=== PATIENT | female | born 1950 | race Caucasian/White ===

== ENCOUNTER → 2017-11-30 | Outpatient (REF) | payer BC ==
[2017-11-30 17:30] LABS: APPEARANCE, URINE HAZY (CLEAR); BACTERIA, URINE AUTO 3+ (NEGATIVE); BILIRUBIN, URINE AUTO NEGATIVE (NEGATIVE); BLOOD, URINE BLOOD NEGATIVE (NEGATIVE); COLOR, URINE YELLOW (YELLOW); GLUCOSE, URINE (UA) AUTO NEGATIVE (NEGATIVE); KETONE, URINE AUTO TRACE mg/dL (NEGATIVE); LEUKOCYTE ESTERASE, URINE AUTO 3+ (NEGATIVE); MUCUS, URINE SMALL (NEGATIVE); NITRITE, URINE AUTO POSITIVE (NEGATIVE); PROTEIN, URINE AUTO NEGATIVE (NEGATIVE); RBC, URINE AUTO 3 /HPF (0-3); SPECIFIC GRAVITY URINE AUTO 1.024 (1.002-1.035); SQUAMOUS EPITHELIAL CELL UR AU 3 /HPF (0-6); UROBILINOGEN, URINE AUTO 0.2 mg/dL (0.0-2.0); WBC, URINE AUTO 21 /HPF (0-3)
== END ==
LOC: M LAB REF 16:29
DX: N39.0 Urinary tract infection, site not specified (principal)
CPT/HCPCS: 81001

== ENCOUNTER → 2017-12-11 | Outpatient (REF) | payer BC ==
[2017-12-11 20:13] LABS: APPEARANCE, URINE HAZY (CLEAR); BACTERIA, URINE AUTO NEGATIVE (NEGATIVE); BILIRUBIN, URINE AUTO NEGATIVE (NEGATIVE); BLOOD, URINE BLOOD NEGATIVE (NEGATIVE); COLOR, URINE YELLOW (YELLOW); GLUCOSE, URINE (UA) AUTO NEGATIVE (NEGATIVE); KETONE, URINE AUTO TRACE mg/dL (NEGATIVE); LEUKOCYTE ESTERASE, URINE AUTO TRACE (NEGATIVE); MUCUS, URINE SMALL (NEGATIVE); NITRITE, URINE AUTO NEGATIVE (NEGATIVE); PROTEIN, URINE AUTO NEGATIVE (NEGATIVE); RBC, URINE AUTO 3 /HPF (0-3); SPECIFIC GRAVITY URINE AUTO 1.028 (1.002-1.035); SQUAMOUS EPITHELIAL CELL UR AU 3 /HPF (0-6); WBC, URINE AUTO 2 /HPF (0-3)
== END ==
LOC: M LAB REF 17:11
DX: J20.9 Acute bronchitis, unspecified (principal)
CPT/HCPCS: 81001

== ENCOUNTER → 2017-12-11 | Outpatient (CLI) | payer BC | LOC: M WUC 12:32 | DX: J20.9 Acute bronchitis, unspecified (principal) ==

== ENCOUNTER → 2018-02-11 | Outpatient (CLI) | payer BC ==
[2018-02-11 17:08] LABS: ALBUMIN 3.8 GM/DL (3.2-5.2); ALBUMIN/GLOBULIN RATIO 1.19 (1.00-1.93); ALKALINE PHOSPHATASE 78 U/L (45-117); ALT/SGPT 20 U/L (12-78); ANION GAP 9 MEQ/L (8-16); AST/SGOT 19 U/L (7-37); BILIRUBIN,TOTAL 0.5 MG/DL (0.2-1.0); BLOOD UREA NITROGEN 17 MG/DL (7-18); CALCIUM LEVEL 8.9 MG/DL (8.8-10.2); CARBON DIOXIDE LEVEL 29 MEQ/L (21-32); CHLORIDE LEVEL 103 MEQ/L (98-107); CREATININE FOR GFR 0.73 MG/DL (0.55-1.30); GLOMERULAR FILTRATION RATE > 60.0 (>45); GLUCOSE, FASTING 84 MG/DL (70-100); POTASSIUM SERUM 4.2 MEQ/L (3.5-5.1); SODIUM LEVEL 141 MEQ/L (136-145)
== END ==
LOC: M WUC 12:16
DX: Q44.6 Cystic disease of liver (principal)
CPT/HCPCS: 80053

== ENCOUNTER → 2018-02-17 | Outpatient (CLI) | payer BC ==
[~2018-02-17] MED LIST: PROHANCE 279.3MG/ML 15ML VIAL (A9576) As Ordered; PROHANCE 279.3MG/ML 5ML VIAL (A9576) As Ordered
== END ==
LOC: M RAD 11:15
DX: K76.9 Liver disease, unspecified (principal)

== ENCOUNTER → 2018-04-13 | Outpatient (CLI) | payer BC ==
[2018-04-13 13:04] LABS: BASO % 0.3 % (0.0-1.0); EOS # 0.1 10^3/uL (0.0-0.50); EOS % 1.4 % (0.0-3.0); HEMATOCRIT 41.2 % (36.0-47.0); HEMOGLOBIN 13.8 g/dl (12.0-15.5); IMMATURE GRANULOCYTE % 0.3 % (0-3.0); LYMPH # 1.9 10^3/uL (1.5-4.5); LYMPH % 23.9 % (24.0-44.0); MEAN CORPUSCULAR HEMOGLOBIN 29.8 pg (27.0-33.0); MEAN CORPUSCULAR HGB CONC 33.5 g/dl (32.0-36.5); MONO # 0.8 10^3/uL (0.0-0.8); MONO % 9.8 % (0.0-5.0); NEUTROPHILS % 64.3 % (36.0-66.0); PLATELET COUNT, AUTOMATED 215 10^3/uL (150-450); RED BLOOD COUNT 4.63 10^6/uL (4.00-5.40); RED CELL DISTRIBUTION WIDTH 13.1 % (11.5-14.5); WHITE BLOOD COUNT 7.8 10^3/uL (4.0-10.0)
[2018-04-13 13:08] LABS: APPEARANCE, URINE HAZY (CLEAR); BACTERIA, URINE AUTO 1+ (NEGATIVE); BILIRUBIN, URINE AUTO NEGATIVE (NEGATIVE); BLOOD, URINE BLOOD NEGATIVE (NEGATIVE); COLOR, URINE YELLOW (YELLOW); GLUCOSE, URINE (UA) AUTO NEGATIVE (NEGATIVE); KETONE, URINE AUTO NEGATIVE (NEGATIVE); LEUKOCYTE ESTERASE, URINE AUTO 1+ (NEGATIVE); MUCUS, URINE SMALL (NEGATIVE); NITRITE, URINE AUTO POSITIVE (NEGATIVE); PROTEIN, URINE AUTO NEGATIVE (NEGATIVE); RBC, URINE AUTO 3 /HPF (0-3); SPECIFIC GRAVITY URINE AUTO 1.011 (1.002-1.035); SQUAMOUS EPITHELIAL CELL UR AU 2 /HPF (0-6); UROBILINOGEN, URINE AUTO 0.2 mg/dL (0.0-2.0); WBC, URINE AUTO 29 /HPF (0-3)
[2018-04-13 13:20] LABS: TOTAL 25(OH) VITAMIN D 30.2 NG/ML (30.0-100.0)
[2018-04-13 13:27] LABS: ALBUMIN 3.8 GM/DL (3.2-5.2); ALBUMIN/GLOBULIN RATIO 1.15 (1.00-1.93); ALKALINE PHOSPHATASE 78 U/L (45-117); ALT/SGPT 32 U/L (12-78); ANION GAP 7 MEQ/L (8-16); AST/SGOT 21 U/L (7-37); BILIRUBIN,TOTAL 0.5 MG/DL (0.2-1.0); BLOOD UREA NITROGEN 16 MG/DL (7-18); CALCIUM LEVEL 8.9 MG/DL (8.8-10.2); CARBON DIOXIDE LEVEL 31 MEQ/L (21-32); CHLORIDE LEVEL 104 MEQ/L (98-107); CHOLESTEROL LEVEL 190 MG/DL (<200); CHOLESTEROL RISK RATIO 2.533 (<5); CREATININE FOR GFR 0.73 MG/DL (0.55-1.30); FREE T4 1.23 NG/DL (0.76-1.46); GLOMERULAR FILTRATION RATE > 60.0 (>45); GLUCOSE, FASTING 101 MG/DL (70-100); HDL CHOLESTEROL 75 MG/DL (>40); LDL CHOLESTEROL 100.8 MG/DL (<100); NON-HDL-C 115 MG/DL; POTASSIUM SERUM 3.8 MEQ/L (3.5-5.1); SODIUM LEVEL 142 MEQ/L (136-145); TOTAL PROTEIN 7.1 GM/DL (6.4-8.2); TRIGLYCERIDES LEVEL 71 MG/DL (<150)
== END ==
LOC: M SMT 08:12
DX: I10 Essential (primary) hypertension (principal); E55.9 Vitamin D deficiency, unspecified; E78.5 Hyperlipidemia, unspecified; J30.9 Allergic rhinitis, unspecified

== ENCOUNTER → 2018-06-16 | Outpatient (REF) | payer BC ==
[2018-06-16 20:38] LABS: APPEARANCE, URINE CLOUDY (CLEAR); BACTERIA, URINE AUTO 2+ (NEGATIVE); BILIRUBIN, URINE AUTO NEGATIVE (NEGATIVE); BLOOD, URINE BLOOD 1+ (NEGATIVE); COLOR, URINE YELLOW (YELLOW); GLUCOSE, URINE (UA) AUTO NEGATIVE (NEGATIVE); KETONE, URINE AUTO TRACE mg/dL (NEGATIVE); LEUKOCYTE ESTERASE, URINE AUTO 3+ (NEGATIVE); MUCUS, URINE SMALL (NEGATIVE); NITRITE, URINE AUTO POSITIVE (NEGATIVE); PROTEIN, URINE AUTO NEGATIVE (NEGATIVE); RBC, URINE AUTO 8 /HPF (0-3); SPECIFIC GRAVITY URINE AUTO 1.016 (1.002-1.035); SQUAMOUS EPITHELIAL CELL UR AU 1 /HPF (0-6); UROBILINOGEN, URINE AUTO 0.2 mg/dL (0.0-2.0); WBC, URINE AUTO 132 /HPF (0-3)
== END ==
LOC: M LAB REF 09:16
DX: R30.0 Dysuria (principal)
CPT/HCPCS: 81001

== ENCOUNTER → 2018-06-30 | Outpatient (CLI) | payer BC | LOC: M RAD 08:26 | DX: R91.8 Other nonspecific abnormal finding of lung field (principal) | CPT/HCPCS: 71250 ==

== ENCOUNTER → 2019-04-07 | Outpatient (CLI) | payer BC ==
--- NOTE | 2019-04-07 11:51 | REP ---
LEFT KNEE, FIVE VIEWS: HISTORY: Knee pain. There is no acute fracture or dislocation. There is moderate narrowing of the knee joint spaces. Osteophytes are present in the femur and tibia. Chondrocalcinosis is present. IMPRESSION: Degenerative change as described above. Electronically Signed by Kristian Martin MD 04/07/2019 12:04 P
== END ==
LOC: M WUC 10:40
PROVIDERS: ATTEND Physician Assistant
DX: M17.12 Unilateral primary osteoarthritis, left knee (principal); M25.762 Osteophyte, left knee; M25.562 Pain in left knee

== ENCOUNTER → 2019-10-18 | Outpatient (CLI) | payer BC ==
--- NOTE | 2019-10-18 12:20 | REP ---
Clinical: Lower back pain. Technique: AP, lateral, bilateral oblique and coned-down views of the lumbosacral spine. Comparison: MRI dated 09/28/2015 Findings: Age related osteopenia and degenerative changes include endplate sclerosis, disc space narrowing, and hypertrophic facet changes primarily involving L4-5 and L5-S1. There is chronic grade 1 anterolisthesis at the L4-5 level of approximately 7 mm and chronic grade 1 anterolisthesis at the L5-S1 level of approximately 5 mm. There is no evidence for acute fracture / compression injury. Impression: Osteopenia and multilevel degenerative spondylosis including chronic grade 1 anterolisthesis at L4-5 and L5-S1. Electronically Signed by Mark Ross MD 10/18/2019 12:11 P
== END ==
LOC: M WUC 11:42
PROVIDERS: ATTEND Physician Assistant
DX: S39.012A Strain of muscle, fascia and tendon of lower back, initial encounter (principal); X58.XXXA Exposure to other specified factors, initial encounter; Y92.89 Other specified places as the place of occurrence of the external cause; M47.896 Other spondylosis, lumbar region; M47.897 Other spondylosis, lumbosacral region; M85.88 Other specified disorders of bone density and structure, other site

== ENCOUNTER → 2019-12-05 | Outpatient (CLI) | payer BC ==
--- NOTE | 2019-12-06 01:44 | REP ---
Clinical: Cough . Comparison: 12/11/2017. Technique: PA and lateral. Findings: The mediastinum and cardiac silhouette are normal. The lung goetz are clear and without acute consolidation, effusion, or pneumothorax. Lateral view demonstrates chronic blunting to the right posterior costophrenic angle. The skeletal structures are intact and normal. Impression: 1. No acute cardiopulmonary process. Electronically Signed by Makr Ross MD 12/06/2019 01:35 A
== END ==
LOC: M WUC 12:48
PROVIDERS: ATTEND Physician Assistant
DX: R06.02 Shortness of breath (principal)

== ENCOUNTER → 2020-02-07 | Outpatient (CLI) | payer BC ==
[2020-02-07 09:26] LABS: BASO % 0.3 % (0.0-1.0); EOS # 0.1 10^3/uL (0.0-0.5); EOS % 1.6 % (0.0-3.0); HEMATOCRIT 43.2 % (36.0-47.0); HEMOGLOBIN 14.2 g/dl (12.0-15.5); LYMPH # 2.1 10^3/uL (1.5-5.0); LYMPH % 28.7 % (24.0-44.0); MEAN CORPUSCULAR HEMOGLOBIN 28.9 pg (27.0-33.0); MEAN CORPUSCULAR HGB CONC 32.9 g/dl (32.0-36.5); MEAN CORPUSCULAR VOLUME 87.8 fl (80.0-96.0); MONO # 0.7 10^3/uL (0.0-0.8); MONO % 9.1 % (0.0-5.0); NEUTROPHILS # 4.4 10^3/uL (1.5-8.5); NEUTROPHILS % 59.9 % (36.0-66.0); PLATELET COUNT, AUTOMATED 211 10^3/uL (150-450); RED BLOOD COUNT 4.92 10^6/uL (4.00-5.40); WHITE BLOOD COUNT 7.3 10^3/uL (4.0-10.0)
[2020-02-07 09:50] LABS: APPEARANCE, URINE CLEAR (CLEAR); BACTERIA, URINE AUTO 3+ (NEGATIVE); BILIRUBIN, URINE AUTO NEGATIVE (NEGATIVE); BLOOD, URINE BLOOD NEGATIVE (NEGATIVE); COLOR, URINE YELLOW (YELLOW); GLUCOSE, URINE (UA) AUTO NEGATIVE (NEGATIVE); KETONE, URINE AUTO NEGATIVE (NEGATIVE); LEUKOCYTE ESTERASE, URINE AUTO NEGATIVE (NEGATIVE); NITRITE, URINE AUTO NEGATIVE (NEGATIVE); PROTEIN, URINE AUTO NEGATIVE (NEGATIVE); RBC, URINE AUTO 3 /HPF (0-3); SPECIFIC GRAVITY URINE AUTO 1.009 (1.002-1.035); SQUAMOUS EPITHELIAL CELL UR AU 1 /HPF (0-6); UROBILINOGEN, URINE AUTO 0.2 mg/dL (0.0-2.0); WBC, URINE AUTO 3 /HPF (0-3)
[2020-02-07 10:05] LABS: ALBUMIN 3.6 GM/DL (3.2-5.2); ALT/SGPT 19 U/L (12-78); BILIRUBIN,TOTAL 0.4 MG/DL (0.2-1.0); BLOOD UREA NITROGEN 20 MG/DL (7-18); CALCIUM LEVEL 9.1 MG/DL (8.8-10.2); CARBON DIOXIDE LEVEL 32 MEQ/L (21-32); CHLORIDE LEVEL 103 MEQ/L (98-107); CHOLESTEROL LEVEL 245 MG/DL (<200); CHOLESTEROL RISK RATIO 3.402 (<5); CREATININE FOR GFR 0.69 MG/DL (0.55-1.30); FREE T4 1.27 NG/DL (0.76-1.46); GLOMERULAR FILTRATION RATE > 60.0 (>45); GLUCOSE, FASTING 104 MG/DL (70-100); HDL CHOLESTEROL 72 MG/DL (>40); LDL CHOLESTEROL 153 MG/DL (<100); NON-HDL-C 173 MG/DL; POTASSIUM SERUM 3.4 MEQ/L (3.5-5.1); SODIUM LEVEL 141 MEQ/L (136-145); TOTAL PROTEIN 6.8 GM/DL (6.4-8.2); TRIGLYCERIDES LEVEL 100 MG/DL (<150)
== END ==
LOC: M WUC 08:20
PROVIDERS: ATTEND Family Medicine
DX: Z00.01 Encounter for general adult medical examination with abnormal findings (principal); I10 Essential (primary) hypertension

== ENCOUNTER → 2020-02-16 | Outpatient (CLI) | payer BC | LOC: M WUC 15:14 | PROVIDERS: ATTEND Internal Medicine Cardiovascular Disease | DX: R06.02 Shortness of breath (principal) ==

== ENCOUNTER → 2020-06-06 | Outpatient (CLI) | payer BC ==
[~2020-06-06] MED LIST changes: +ACET-897 PO; +ADV250INH INH; +ALLE180T33 PO; +AMLO1TAB24 PO; +ATOR1TAB19 PO; +CEFD300CAP PO; +CHLO25TA PO; +IBUP200C25 PO; +KEFL500C17 PO; +MAGN400C2 PO; +MAGN400T2 PO; +OMEP1CAP73 PO; +POTA10TA16 PO; +PROAAER10 INH; -PROHANCE 279.3MG/ML 15ML VIAL (A9576) As Ordered; -PROHANCE 279.3MG/ML 5ML VIAL (A9576) As Ordered; +VITA50005 PO; +XARE10TA PO; +XARE20TA PO
== END ==
LOC: M LABSMTC 10:17
PROVIDERS: ATTEND Anesthesiology
DX: Z01.818 Encounter for other preprocedural examination (principal); Z11.59 Encounter for screening for other viral diseases; Z20.828 Contact with and (suspected) exposure to other viral communicable diseases
CPT/HCPCS: C9803; U0003

== ENCOUNTER 2020-06-11 11:52 | Day surgery (SDC) | payer BC ==
[~2020-06-11] VITALS: Ht 162.6 cm; Wt 75.7 kg
[~2020-06-11 11:52] MED LIST changes: -ACET-897 PO; -AMLO1TAB24 PO; -CEFD300CAP PO; -IBUP200C25 PO; -KEFL500C17 PO; +LIDOCAINE 2% 100MG/5ML SDV (FOR ANES.) As Ordered ONE; +LIDOCAINE 2% INJ 100 MG/5 ML SYRINGE As Ordered ONE; -MAGN400C2 PO; -MAGN400T2 PO; -XARE10TA PO; -XARE20TA PO; +propofoL 200 MG/20 ML VIAL As Ordered ONE
[2020-06-11] MEDS ORDERED: IBUP200C25 PO (12:14)
[2020-06-11] MEDS ORDERED: ACET-897 PO (12:14)
--- NOTE | 2020-06-11 12:39 | ROOR ---
Patient Name: Irais Hunt Procedure Date: 06/11/2020 12:27 PM Date of : 1950 Age: 70 Room: [facility] Gender: Female Note Status: Finalized Procedure: Upper GI endoscopy Indications: Epigastric abdominal pain Providers: David MENDEZ MD Referring MD: SHRADDHA GANDHI MD Requesting Provider: Medicines: Monitored Anesthesia Care Complications: No immediate complications. Procedure: Pre-Anesthesia Assessment: - The heart rate, respiratory rate, oxygen saturations, blood pressure, adequacy of pulmonary ventilation, and response to care were monitored throughout the procedure. The Endoscope was introduced through the mouth, and advanced to the second part of duodenum. Findings: The examined esophagus was normal. Very small (insignificant) Hiatal Hernia. The entire examined stomach was normal. The examined duodenum was normal. Impression: - Normal esophagus. - Normal stomach with a very small hiatal hernia. - Normal examined duodenum. - No specimens collected. Recommendation: - Follow an antireflux regimen. - Observe patient's clinical course. - Continue present medications. David Mendez MD David MENDEZ MD 06/11/2020 12:39:07 PM Electronically signed by David MENDEZ MD Number of Addenda: 0 Note Initiated On: 06/11/2020 12:27 PM Estimated Blood Loss: Estimated blood loss: none.
--- NOTE | 2020-06-11 12:57 | ROOR ---
Patient Name: Irais Hunt Procedure Date: 06/11/2020 12:28 PM Date of : 1950 Age: 70 Room: [facility] Gender: Female Note Status: Finalized Procedure: Colonoscopy Indications: Colon cancer screening in patient at increased risk: Colorectal cancer in father Providers: David MENDEZ MD Referring MD: SHRADDHA GANDHI MD Requesting Provider: Medicines: Monitored Anesthesia Care Complications: No immediate complications. Procedure: Pre-Anesthesia Assessment: - The heart rate, respiratory rate, oxygen saturations, blood pressure, adequacy of pulmonary ventilation, and response to care were monitored throughout the procedure. The Colonoscope was introduced through the anus and advanced to the terminal ileum, with identification of the appendiceal orifice and IC valve. The colonoscopy was performed without difficulty. The patient tolerated the procedure well. The quality of the bowel preparation was good. Findings: The perianal and digital rectal examinations were normal. Multiple medium-mouthed diverticula were found in the entire colon. Small Internal Hemorrhoids. The exam was otherwise without abnormality on direct and retroflexion views. Impression: - Moderate diverticulosis in the entire colon. - Small Internal Hemorrhoids. - The colon examination was otherwise normal on direct and retroflexion views. - No specimens collected. Recommendation: - Repeat colonoscopy in 5 years for screening purposes. David Mendez MD David MENDEZ MD 06/11/2020 12:56:43 PM Electronically signed by David MENDEZ MD Number of Addenda: 0 Note Initiated On: 06/11/2020 12:28 PM Estimated Blood Loss: Estimated blood loss: none.
[2020-06-11 13:10] VITALS: BP 123/73
== END 2020-06-11 13:28 | disposition home or self-care (01) ==
LOC: M OPP 11:52
PROVIDERS: ATTEND Internal Medicine Gastroenterology
DX: Z12.11 Encounter for screening for malignant neoplasm of colon (principal); Z80.0 Family history of malignant neoplasm of digestive organs; K57.30 Diverticulosis of large intestine without perforation or abscess without bleeding; K64.8 Other hemorrhoids; R10.13 Epigastric pain; K44.9 Diaphragmatic hernia without obstruction or gangrene; Z79.899 Other long term (current) drug therapy; Z88.8 Allergy status to other drugs, medicaments and biological substances

== ENCOUNTER 2020-07-31 16:13 | Emergency (ER) | payer BC ==
[~2020-07-31] VITALS: Ht 162.6 cm; Wt 82.7 kg
[~2020-07-31 16:13] MED LIST changes: +ACET-897 PO; +IBUP200C25 PO; -LIDOCAINE 2% 100MG/5ML SDV (FOR ANES.) As Ordered ONE; -LIDOCAINE 2% INJ 100 MG/5 ML SYRINGE As Ordered ONE; -propofoL 200 MG/20 ML VIAL As Ordered ONE
[2020-07-31 18:03] LABS: BASO % 0.2 % (0.0-1.0); EOS # 0.1 10^3/uL (0.0-0.5); EOS % 0.6 % (0.0-3.0); HEMATOCRIT 41.8 % (36.0-47.0); LYMPH # 2.5 10^3/uL (1.5-5.0); LYMPH % 20.3 % (24.0-44.0); MEAN CORPUSCULAR HEMOGLOBIN 29.8 pg (27.0-33.0); MEAN CORPUSCULAR HGB CONC 33.5 g/dl (32.0-36.5); MEAN CORPUSCULAR VOLUME 88.9 fl (80.0-96.0); MONO # 1.1 10^3/uL (0.0-0.8); MONO % 9.2 % (0.0-5.0); NEUTROPHILS # 8.5 10^3/uL (1.5-8.5); NEUTROPHILS % 69.2 % (36.0-66.0); PLATELET COUNT, AUTOMATED 195 10^3/uL (150-450); WHITE BLOOD COUNT 12.3 10^3/uL (4.0-10.0)
[2020-07-31 18:27] LABS: ALBUMIN 3.5 GM/DL (3.2-5.2); ALT/SGPT 30 U/L (12-78); BILIRUBIN,DIRECT 0.2 MG/DL (0.0-0.2); BILIRUBIN,TOTAL 0.6 MG/DL (0.2-1.0); BLOOD UREA NITROGEN 14 MG/DL (7-18); CALCIUM LEVEL 8.6 MG/DL (8.8-10.2); CARBON DIOXIDE LEVEL 30 MEQ/L (21-32); CHLORIDE LEVEL 102 MEQ/L (98-107); CK-MB VALUE MASS < 1.0 NG/ML (<3.6); CPK CREATINE PHOSPHOKINASE 62 U/L (26-192); CREATININE FOR GFR 0.87 MG/DL (0.55-1.30); GLOMERULAR FILTRATION RATE > 60.0 (>45); GLUCOSE, FASTING 103 MG/DL (70-100); LIPASE 144 U/L (73-393); MB/CK RELATIVE INDEX 1.61 (< OR =4); POTASSIUM SERUM 3.2 MEQ/L (3.5-5.1); SODIUM LEVEL 139 MEQ/L (136-145); TROPONIN I < 0.02 NG/ML (< 0.10)
[2020-07-31] MEDS ORDERED: NS 500 ML IV ONE (18:30)
[2020-07-31 18:42] LABS: INR 1.03; PROTHROMBIN TIME 13.7 SECONDS (11.8-14.0)
[2020-07-31 18:43] LABS: PARTIAL THROMBOPLASTIN TIME 32.7 SECONDS (25.0-38.4)
[2020-07-31] MEDS ORDERED: POTASSIUM CHLORIDE 10 MEQ SR TABLET PO ONE (19:00)
--- NOTE | 2020-07-31 19:01 | REPVR ---
PROCEDURE INFORMATION: Exam: US Duplex Left Lower Extremity Veins, Limited Exam date and time: 07/31/2020 6:27 PM Age: 70 years old Clinical indication: Pain; Leg, lower; Left; Additional info: Lle pain eval for dvt TECHNIQUE: Imaging protocol: Real-time Duplex ultrasound of the Left Lower Extremity with 2-D deleon scale, color Doppler flow and spectral waveform analysis with image documentation. Limited exam focused on the left lower extremity veins. COMPARISON: US Duplex, Ext,LOWER veins,unilat 03/14/2016 9:12 PM FINDINGS: Left deep veins: Echogenic thrombus from the greater saphenous vein at the junction extends into the left common femoral vein. The left femoral and popliteal veins demonstrate normal flow, augmentation and compressibility. Left superficial veins: Patient is status post EVLT. The visualized portions of the greater saphenous vein are closed. Soft tissues: Unremarkable. IMPRESSION: 1. Status post endovenous laser treatment with closure of the visualized proximal portion of the greater saphenous vein. 2. Deep venous thrombosis with clot within the common femoral vein extending from the greater saphenous vein junction. Electronically signed by: Robbie Dawkins On 07/31/2020 19:01:08 PM
[2020-07-31] MEDS ORDERED: ISOVUE-370 76% 100ML VIAL As Ordered ONE (19:04)
--- NOTE | 2020-07-31 20:23 | REPVR ---
PROCEDURE INFORMATION: Exam: CT Abdomen And Pelvis With Contrast Exam date and time: 07/31/2020 7:27 PM Age: 70 years old Clinical indication: Nausea; Additional info: Lightheadedness R/O pe TECHNIQUE: Imaging protocol: Computed tomography of the abdomen and pelvis with intravenous contrast. Radiation optimization: All CT scans at this facility use at least one of these dose optimization techniques: automated exposure control; mA and/or kV adjustment per patient size (includes targeted exams where dose is matched to clinical indication); or iterative reconstruction. Contrast material: ISOVUE 370; Contrast volume: 100 ml; Contrast route: INTRAVENOUS (IV); COMPARISON: No relevant prior studies available. FINDINGS: Lungs: Minimal linear atelectasis and/or scar in the lung bases. Liver: Multiple simple cysts within the liver. There are multiple low-density lesions which are too small to accurately characterize within the liver, likely representing cysts. Gallbladder and bile ducts: Status post cholecystectomy. Dilated common bile duct measuring up to 11 mm in diameter is likely secondary to the post cholecystectomy state. No calcified stone identified within the common bile duct. Correlate with signs and symptoms of biliary obstruction. Pancreas: Unremarkable. No ductal dilation. Spleen: Unremarkable. No splenomegaly. Adrenals: Normal. No mass. Kidneys and ureters: Right renal simple cyst measuring 16 mm. No right renal stone or hydronephrosis. Normal left kidney and left ureter. Stomach and bowel: Tiny gastric hiatus hernia. Numerous diverticuli throughout the colon. No diverticulitis or colitis. Normal small bowel. Appendix: No evidence of appendicitis. Intraperitoneal space: Unremarkable. No free air. No significant fluid collection. Vasculature: Mild atherosclerosis of the abdominal aorta and branch vessels. No aneurysm. Poor opacification of the visceral, inferior mesenteric and superior mesenteric veins and contrast admixture within the portal vein is likely secondary to contrast bolus timing. Non opacification of the iliac veins and IVC is likely secondary to contrast bolus timing. Lymph nodes: Unremarkable. No enlarged lymph nodes. Bladder: Unremarkable as visualized. Reproductive: Unremarkable as visualized. Bones/joints: Degenerative spondylosis of the lumbar spine. Grade 1 anterolisthesis of L4 and grade 1 anterolisthesis of L5. No acute fracture. Soft tissues: Unremarkable. IMPRESSION: 1. No acute abnormality. 2. Colonic diverticulosis. 3. Dilated common bile duct, likely secondary to the post cholecystectomy state. Correlate with signs and symptoms of biliary obstruction. 4. Hepatic cysts and too small to accurately characterize hepatic low-density lesions, likely cysts. 5. Right renal simple cyst. COMMENTS: Consistent with the [employer] [place]'s Incidental Findings Committee white paper (J Am Miranda Radiol 2018): Any incidental renal lesion less than 1 cm or classified as too small to characterize, or any incidental cystic renal lesion characterized as simple-appearing, is likely benign. No follow-up imaging is recommended for these lesions per consensus recommendations based on imaging criteria. Electronically signed by: Robbie Dawkins On 07/31/2020 20:23:15 PM
--- NOTE | 2020-07-31 20:32 | REPVR ---
PROCEDURE INFORMATION: Exam: CT Angiography Chest With Contrast Exam date and time: 07/31/2020 7:27 PM Age: 70 years old Clinical indication: Other: Lightheaded; Additional info: Lightheadedness R/O pe TECHNIQUE: Imaging protocol: Computed tomographic angiography of the chest with intravenous contrast. 3D rendering (Not supervised by radiologist): MIP and/or 3D reconstructed images were created by the technologist. Radiation optimization: All CT scans at this facility use at least one of these dose optimization techniques: automated exposure control; mA and/or kV adjustment per patient size (includes targeted exams where dose is matched to clinical indication); or iterative reconstruction. Contrast material: ISOVUE 370; Contrast volume: 100 ml; Contrast route: INTRAVENOUS (IV); COMPARISON: CT Chest without contrast 06/30/2018 8:34 AM FINDINGS: Pulmonary arteries: No pulmonary arterial embolism. Aorta: Mild aortic atherosclerosis. No thoracic aortic aneurysm or dissection. Lungs: Calcified granuloma within the left upper lobe and right lower lobe. Dependent opacities within the lung bases, likely atelectasis. Small areas of hyperlucency within the posterior lower lobes bilaterally suggestive of small airways disease. No pulmonary consolidation. Pleural space: Unremarkable. No pneumothorax. No pleural effusion. Heart: Mild coronary atherosclerosis. No cardiomegaly. No CT scan evidence of right heart dysfunction. Lymph nodes: Unremarkable. No enlarged lymph nodes. Bones/joints: Degenerative spondylosis of the thoracic spine. No fracture. Accentuation of the thoracic kyphosis. Soft tissues: Unremarkable. IMPRESSION: 1. No pulmonary arterial embolism. 2. Dependent lung opacities, likely atelectasis. 3. Findings suggestive small airways disease. 4. Evidence of prior granulomatous disease. Electronically signed by: Robbie Dawkins On 07/31/2020 20:32:16 PM
[2020-07-31] MEDS ORDERED: RIVAROXABAN 15 MG TAB (XARELTO) PO ONE (21:15)
[2020-07-31 21:44] VITALS: BP 143/67
--- NOTE | 2020-08-04 15:07 | ECGEPIP ---
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
== END 2020-07-31 21:47 | disposition home or self-care (01) ==
LOC: M ED 16:13
DX: I82.4Z2 Acute embolism and thrombosis of unspecified deep veins of left distal lower extremity (principal); Z88.8 Allergy status to other drugs, medicaments and biological substances
CPT/HCPCS: 71275; 74177; 80048; 80076; 82550; 82553; 83690; 84484; 85025; 85610; 85730; 93005; 93041; 93971; 94760; 96360; 99284; Q9967

== ENCOUNTER → 2020-08-14 | Outpatient (CLI) | payer BC ==
[~2020-08-14] MED LIST changes: +AMLO1TAB24 PO; +CEFD300CAP PO; +KEFL500C17 PO; +MAGN400C2 PO; +MAGN400T2 PO; +XARE10TA PO; +XARE20TA PO
--- NOTE | 2020-08-17 07:29 | SLEEPHOME ---
DATE: 08/14/2020 ORDERED BY: David Nguyen MD Diagnostic home sleep testing was performed due to concern for the obstructive sleep apnea syndrome. For testing, a nocturnal T3 respiratory monitoring device was used. Continuous record was made of pulse, oxygen saturation, air flow, chest and abdominal strain, and body position. Nine hours and 59 minutes of data were reviewed. There were 7 hours and 53 minutes marked as time in bed. During the interval marked time in bed, there were 106 respiratory events identified of 10 seconds in duration or greater for a respiratory event index of 13.4. The events were primarily obstructive though 38 mixed and central apneas were also identified. Baseline pulse rate 60, pulse rate range 52-87, baseline saturation 90%, saturations fell to 80%. Testing was performed in both the supine and non-supine positions. IMPRESSION: Abnormal home sleep testing with repetitive respiratory events and oxygen desaturations to 80% with a respiratory event index of 13.4 is consistent with the obstructive sleep apnea syndrome. RECOMMENDATION: The patient should be encouraged to undergo a formal sleep evaluation. [facility]
== END ==
LOC: M SLEEP HO 10:06
PROVIDERS: ATTEND Internal Medicine Cardiovascular Disease
DX: R40.0 Somnolence (principal)

== ENCOUNTER → 2020-09-25 | Outpatient (REF) | payer BC | LOC: M WUC 10:23 | PROVIDERS: ATTEND Physician Assistant | DX: R30.0 Dysuria (principal) ==

== ENCOUNTER 2020-09-26 20:51 | Inpatient (IN) | payer BC ==
[~2020-09-26] VITALS: Ht 162.6 cm; Wt 84.7 kg
[~2020-09-26 20:51] MED LIST changes: -AMLO1TAB24 PO; -CEFD300CAP PO; -KEFL500C17 PO; -MAGN400C2 PO; -MAGN400T2 PO; -XARE10TA PO; -XARE20TA PO
[2020-09-26] MEDS ORDERED: KEFL500C17 PO (21:04)
[2020-09-26] MEDS ORDERED: XARE10TA PO (21:04)
[2020-09-26] MEDS ORDERED: MAGN400C2 PO (21:41)
[2020-09-26] MEDS ORDERED: ACETAMINOPHEN TAB 650MG DOSE (2X325MG) PO ONE (21:45)
[2020-09-26] MEDS ORDERED: NS 1,000 ML IV ONE (21:45)
[2020-09-26 21:47] LABS: HEMATOCRIT 40.3 % (36.0-47.0); HEMOGLOBIN 13.3 g/dl (12.0-15.5); MEAN CORPUSCULAR HEMOGLOBIN 28.9 pg (27.0-33.0); MEAN CORPUSCULAR VOLUME 87.6 fl (80.0-96.0); PLATELET COUNT, AUTOMATED 206 10^3/uL (150-450); WHITE BLOOD COUNT 22.8 10^3/uL (4.0-10.0)
[2020-09-26 22:22] LABS: ANISOCYTOSIS 1+; LYMPHOCYTES 15 % (16-44); MONOCYTES 7 % (0-5); NEUTROPHILS 73 % (28-66); PLATELET ESTIMATE NORMAL (NORMAL)
[2020-09-26 22:23] LABS: ALBUMIN 3.3 GM/DL (3.2-5.2); ALT/SGPT 28 U/L (12-78); BILIRUBIN,DIRECT 0.4 MG/DL (0.0-0.2); BILIRUBIN,TOTAL 0.8 MG/DL (0.2-1.0); BLOOD UREA NITROGEN 14 MG/DL (7-18); CARBON DIOXIDE LEVEL 32 MEQ/L (21-32); CHLORIDE LEVEL 93 MEQ/L (98-107); CK-MB VALUE MASS < 1.0 NG/ML (<3.6); CPK CREATINE PHOSPHOKINASE 46 U/L (26-192); CREATININE FOR GFR 0.96 MG/DL (0.55-1.30); GLOMERULAR FILTRATION RATE > 60.0 (>45); GLUCOSE, FASTING 146 MG/DL (70-100); LIPASE 81 U/L (73-393); MB/CK RELATIVE INDEX 2.17 (< OR =4); POTASSIUM SERUM 2.5 MEQ/L (3.5-5.1); SODIUM LEVEL 133 MEQ/L (136-145); TOTAL PROTEIN 7.4 GM/DL (6.4-8.2); TROPONIN I < 0.02 NG/ML (< 0.10)
[2020-09-26] MEDS ORDERED: KCL 10MEQ/100ML SWI (KRUN) 10 MEQ in IV 1 EA IV ONE (22:30)
[2020-09-26] MEDS ORDERED: POTASSIUM CHLORIDE 10 MEQ SR TABLET PO ONE (22:30)
[2020-09-26 22:31] LABS: INR 2.09; PROTHROMBIN TIME 23.9 SECONDS (12.5-14.3)
[2020-09-26 22:32] LABS: PARTIAL THROMBOPLASTIN TIME 50.4 SECONDS (24.2-38.5)
[2020-09-26 22:41] LABS: MAGNESIUM LEVEL 2.1 MG/DL (1.8-2.4)
[2020-09-26] MEDS ORDERED: IBUPROFEN 800 MG TAB PO ONE (23:15)
--- NOTE | 2020-09-26 23:35 | REPVR ---
PROCEDURE INFORMATION: Exam: XR Chest, 1 View Exam date and time: 09/26/2020 11:06 PM Age: 70 years old Clinical indication: Other: Fever; Additional info: Fever, sepsis TECHNIQUE: Imaging protocol: XR of the chest Views: 1 view. COMPARISON: CT ANGIO CHEST 07/31/2020 7:26 PM FINDINGS: Lungs: Linear density at the left lung base is consistent with scarring. There is no evidence of consolidation of lung. Pleural space: There is no evidence of pneumothorax or pleural effusion. Heart/Mediastinum: There is mild cardiomegaly. Bones/joints: There is mild scoliosis of the thoracic spine with osteophyte formation. IMPRESSION: No evidence of consolidation of lung. Electronically signed by: Bryan Angela On 09/26/2020 23:35:12 PM
[2020-09-27] VITALS (11 sets, daily range): BP systolic 102–147; BP diastolic 60–76; O2SAT 91–96
[2020-09-27] MEDS ORDERED: ISOVUE-370 76% 100ML VIAL As Ordered ONE (00:44)
--- NOTE | 2020-09-27 01:36 | REPVR ---
PROCEDURE INFORMATION: Exam: CT Abdomen And Pelvis With Contrast Exam date and time: 09/27/2020 12:39 AM Age: 70 years old Clinical indication: Abdominal pain; Localized; Right; Additional info: Right sided abd pain, sepsis TECHNIQUE: Imaging protocol: Computed tomography of the abdomen and pelvis with intravenous contrast. Radiation optimization: All CT scans at this facility use at least one of these dose optimization techniques: automated exposure control; mA and/or kV adjustment per patient size (includes targeted exams where dose is matched to clinical indication); or iterative reconstruction. Contrast material: ISO; Contrast volume: 100 ml; Contrast route: INTRAVENOUS (IV); COMPARISON: CT ABD/PEL W/IV CONTRAST ONLY 2020-07-31 19:26 FINDINGS: Mediastinal space: Small gastroesophageal sliding type hiatal hernia. Liver: Multiple benign liver cysts, largest measures 2.7 cm. Enlarged low attenuating liver, evidence of hepatic steatosis. Gallbladder and bile ducts: There is a mild, expected degree of intrahepatic and common bile duct dilation. Cholecystectomy clips in the right upper quadrant. Pancreas: Normal. No ductal dilation. Spleen: Normal. No splenomegaly. Adrenal glands: Normal. No mass. Kidneys and ureters: Benign 1.3 cm right renal cyst. Stomach and bowel: Moderate colonic diverticulosis without evidence for acute diverticulitis. Large cecal diverticulum measuring 3.5 cm. Appendix: No evidence of appendicitis. Intraperitoneal space: Unremarkable. No free air. No significant fluid collection. Vasculature: Mild aortic atherosclerosis. Lymph nodes: Unremarkable. No enlarged lymph nodes. Urinary bladder: Unremarkable as visualized. Reproductive: Hysterectomy. Bones/joints: Degenerative moderate to severe L4-L5 spinal stenosis. Degenerative stepwise L4-S1 anterolisthesis. Mild sacroiliitis. Soft tissues: Small fat protruding umbilical hernia. IMPRESSION: 1. Degenerative moderate to severe L4-L5 spinal stenosis. Degenerative stepwise L4-S1 anterolisthesis. 2. Moderate colonic diverticulosis without evidence for acute diverticulitis. Large cecal diverticulum measuring 3.5 cm. 3. Small gastroesophageal sliding type hiatal hernia. COMMENTS: Consistent with the [place] [employer]'s Incidental Findings Committee white paper (J Am Miranda Radiol 2018): Any incidental renal lesion less than 1 cm or classified as too small to characterize, or any incidental cystic renal lesion characterized as simple-appearing, is likely benign. No follow-up imaging is recommended for these lesions per consensus recommendations based on imaging criteria. Electronically signed by: David Paul On 09/27/2020 01:36:20 AM
[2020-09-27] MEDS ORDERED: POTASSIUM CHLORIDE 10 MEQ SR TABLET PO ONE ×2 (01:45→13:00)
[2020-09-27] MEDS ORDERED: NS 1,000 ML IV ONE (02:45)
[2020-09-27] MEDS ORDERED: PIPERACILLIN/TAZOBACTAM SOD 3.375 GM in D5W MINI-BAG PLUS 50 ML IV ONE (02:45)
[2020-09-27] MEDS ORDERED: ACET-897 PO (03:04)
[2020-09-27] MEDS ORDERED: XARE20TA PO (03:04)
[2020-09-27] MEDS ORDERED: MAGN400T2 PO (03:04)
[2020-09-27] MEDS ORDERED: PROAAER10 INH (03:04)
[2020-09-27] MEDS ORDERED: VITA50005 PO (03:04)
[2020-09-27] MEDS ORDERED: MAALOX 30 ML SUSP *UDC PO PRN (03:45)
[2020-09-27] MEDS ORDERED: ALBUTEROL 90 MCG/ACT 8GM HFA INHALER INH PRN (03:45)
[2020-09-27] MEDS ORDERED: MOM 30ML SUSPENSION UDC PO PRN (03:45)
[2020-09-27 04:28] LABS: BASO % 0.2 % (0.0-1.0); HEMATOCRIT 35.2 % (36.0-47.0); HEMOGLOBIN 11.4 g/dl (12.0-15.5); LYMPH # 2.1 10^3/uL (1.5-5.0); LYMPH % 12.7 % (24.0-44.0); MEAN CORPUSCULAR HEMOGLOBIN 28.6 pg (27.0-33.0); MEAN CORPUSCULAR HGB CONC 32.4 g/dl (32.0-36.5); MEAN CORPUSCULAR VOLUME 88.4 fl (80.0-96.0); MONO # 1.7 10^3/uL (0.0-0.8); MONO % 10.4 % (0.0-5.0); NEUTROPHILS # 12.5 10^3/uL (1.5-8.5); NEUTROPHILS % 76.3 % (36.0-66.0); PLATELET COUNT, AUTOMATED 157 10^3/uL (150-450); RED BLOOD COUNT 3.98 10^6/uL (4.00-5.40); WHITE BLOOD COUNT 16.4 10^3/uL (4.0-10.0)
[2020-09-27] MEDS ORDERED: KCL 20MEQ IN D5/NS 1000ML 1,000 ML IV SCH (04:45)
--- NOTE | 2020-09-27 04:55 | HPEPDOC ---
[facility] Medical History & Physical Date of Admission Sep 27, 2020 Date of Service: Sep 27, 2020 Attending Physician: SATISH LYNCH MD History and Physical CHIEF COMPLAINT: Fevers HISTORY OF PRESENT ILLNESS: Patient is a 70-year-old female who presented to the emergency department with a chief complaint of fevers and weakness. Patient has been having fevers off and on since 09/22/2020. Patient went to urgent care yesterday and was diagnosed with a urinary tract infection and was sent home on Keflex. Patient took 2 doses of Keflex yesterday. Patient says her MAXIMUM TEMPERATURE was 103.2F. Most of her fevers were running around 101F. Patient says that her fevers would break and she would feel well. This would last a few hours and then she would start to feel ill again take her temperature and should have a fever. Patient has been taking Tylenol for fevers. Patient reports mild neck and lower back pain that began on Thursday but has not noticed any other symptoms. Patient thought she may have had the flu but did not have any runny nose or cough. PAST MEDICAL HISTORY: 1. Hypertension. 2. GERD. 3. DVT in left leg from vein surgery diagnosed in July 2020. PAST SURGICAL HISTORY: 1. Appendectomy. 2. Cholecystectomy. 3. Hysterectomy. 4. Vein surgery on left lower extremity SOCIAL HISTORY: Patient denies tobacco use, rarely uses alcohol, and denies illicit drug use. Patient lives alone with a dog and works as a [employer]. FAMILY HISTORY: Patient says her mother of sepsis ALLERGIES: Please see below. REVIEW OF SYSTEMS: General: Patient reports fevers as described above in HPI. Patient does report night sweats when her fever would break. Patient denies chills or unintentional weight loss HEENT: Patient denies headaches, runny nose, sore throat Cardiovascular: Patient denies chest pain Respiratory: Patient denies shortness of breath, cough GI: Patient denies abdominal pain, nausea, vomiting, diarrhea : Patient denies increased frequency or pain with urination Extremities: Patient denies swelling or pain in extremities Neurological: Patient denies numbness or tingling in legs Skin: Patient denies any new rashes or lesions. Hematologic: Patient denies any easy bruising. Lymphatic: Patient denies any lumps lumps or bumps in neck, axilla, or groin HOME MEDICATIONS: Please see below. PHYSICAL EXAMINATION: VITAL SIGNS: See below General: Alert and oriented female patient who was laying on the stretcher in the emergency department when I walked into her room. Patient did not appear to be in any acute distress. HEENT: Normocephalic, atraumatic, moist mucous membranes, poor dentition with multiple caps on her teeth. Patient was missing multiple teeth with no obvious signs of infection in her mouth. Posterior pharynx was nonerythematous, tympanic membranes were nonerythematous bilaterally Neck: No lymphadenopathy or thyromegaly Cardiac: Regular rate and rhythm, 1/6 systolic murmur heard loudest over the apex Pulm: Clear to auscultation bilaterally. No wheezes, rhonchi, rales. No E to A egophony present. Lungs were tympanic to percussion bilaterally Abd: Nondistended, nontender to palpation, normal bowel sounds Ext: No edema bilateral lower extremities. 2/4 posterior tibial and dorsalis pedis pulses bilaterally Skin: No evidence of rash or lesions present on the skin. LABORATORY DATA: See below. IMAGING: A chest x-ray performed on 09/26/2020 was reported to show no evidence of consolidation of the lung A CT of the abdomen and pelvis with IV contrast only performed on 09/27/2020 was reported to show degenerative moderate to severe L4-L5 spinal stenosis, degenerative stepwise L4-S1 anterolisthesis. Moderate colonic diverticulosis without evidence for acute diverticulitis, large cecal diverticulum measuring 3.5 cm. Small gastroesophageal sliding-type hiatal hernia. There is a benign 1.3 cm right renal cyst MICROBIOLOGY: Please see below. ASSESSMENT: Patient is a 70-year-old female who presented to the hospital with a 5 day history of fevers. PLAN: 1. Sirs criteria. Upon presentation to the emergency department, patient was febrile and was found to have a leukocytosis. Patient also had hypotension with her lowest mean arterial pressure being 57. Patient does not have an obvious source of infection at this time as her lungs appear clear on examination. Patient does have a heart murmur and upon speaking with the patient about this, she is never been told that she has a heart murmur. Because of the 5 days of fevers as well as the patient's poor dentition, echocardiogram was ordered to evaluate for this new murmur and for possible endocarditis. At this time, patient does not meet Lamar criteria for endocarditis but this is a possible diagnosis. Vancomycin and Zosyn will be started. Patient did receive 2 L of no rmal saline bolus in the emergency department. Patient did not have a lactic acidosis upon presentation. 2. Hypokalemia. Patient's initial potassium level was 2.5 upon arrival to the emergency department. Patient has received 80 mEq of oral potassium as well as 10 mEq IV potassium. Repeat labs are pending and further repletion can be done in IV fluids based on repeat potassium level. Maintenance fluid of 20 mEq of potassium and normal saline will be run at 120 mL per hour. 3. Fevers. Patient's MAXIMUM TEMPERATURE is 103.2 at home. Patient's MAXIMUM TEMPERATURE in the hospital taken orally. Patient has Tylenol written for fever control and is on antibiotics as above. 4. Systolic murmur. Patient has never been told that she has a murmur in the past. I do not have any access to previous records to indicate whether or not she has had documented murmur in the past. Due to the patient's fevers and a possibly new onset murmur, transthoracic echocardiogram has been ordered to evaluate for the cause. New 5. Hypertension. Due to the patient's low blood pressure, antihypertensive medications are on hold at this time. 6. DVT. Patient was diagnosed with a DVT in her left leg in the common femoral vein and extended from the greater saphenous vein junction on 07/31/2020. Patient was status post endovenous laser treatment with closure of the visualized proximal portion of the greater saphenous vein prior to this. Patient was placed on Xarelto which will be continued. 7. GERD. We will continue with her home omeprazole. 8. DVT prophylaxis. Patient will be continued on her home Xarelto. 9. CODE STATUS: Patient would like to be a DO NOT RESUSCITATE with a trial of intubation. I had a conversation with the patient about this as she has not filled out any advanced directives. MOLST form was filled out with the patient and has been signed. This is on her chart. All questions in regard to the MOLST form were answered. Vital Signs Vital Signs Date Time Temp Pulse Resp B/P (MAP) Pulse Ox O2 Delivery O2 Flow Rate FiO2 09/27/20 04:16 60 95 09/27/20 04:15 99/58 (72) 09/27/20 01:06 98.1 09/26/20 20:52 17 Room Air Laboratory Data Labs 24H Laboratory Tests 2 09/26/20 21:35: Neutrophils (%) (Auto) , Nucleated Red Blood Cells % (auto) 0.0, Neutrophils 73H, Band Neutrophils 5, Lymphocytes (Manual) 15L, Monocytes (Manual) 7H, Anisocytosis 1+, Platelet Estimate NORMAL, Anion Gap 8, Glomerular Filtration Rate > 60.0, Lactic Acid Level 1.8, Calcium Level 9.0, Magnesium Level 2.1, Total Bilirubin 0.8, Direct Bilirubin 0.4H, Aspartate Amino Transf (AST/SGOT) 29, Alanine Aminotransferase (ALT/SGPT) 28, Alkaline Phosphatase 97, Total Creatine Kinase 46, Creatine Kinase MB < 1.0, Creatine Kinase MB Relative Index 2.17, Troponin I < 0.02, Total Protein 7.4, Albumin 3.3, Albumin/Globulin Ratio 0.8L, Lipase 81 09/26/20 22:12: Prothrombin Time 23.9H, Prothromb Time International Ratio 2.09, Activated Partial Thromboplast Time 50.4H 09/27/20 01:43: Urine Color YELLOW, Urine Appearance CLEAR, Urine pH 6.0, Urine Specific [place] >1.060H, Urine Protein NEGATIVE, Urine Glucose (UA) NEGATIVE, Urine Ketones N EGATIVE, Urine Blood NEGATIVE, Urine Nitrite NEGATIVE, Urine Bilirubin NEGATIVE, Urine Urobilinogen 0.2, Urine Leukocyte Esterase NEGATIVE, Urine WBC (Auto) 3, Urine RBC (Auto) 1, Urine Hyaline Casts (Auto) 0, Urine Bacteria (Auto) NEGATIVE, Urine Squamous Epithelial Cells 1, Urine Sperm (Auto) 09/27/20 04:20: Neutrophils (%) (Auto) 76.3H, Nucleated Red Blood Cells % (auto) 0.0, Immature Granulocyte % (Auto) 0.4, Lymphocytes (%) (Auto) 12.7L, Monocytes (%) (Auto) 10.4H, Eosinophils (%) (Auto) 0.0, Basophils (%) (Auto) 0.2, Neutrophils # (Auto) 12.5H, Lymphocytes # (Auto) 2.1, Monocytes # (Auto) 1.7H, Eosinophils # (Auto) 0.0, Basophils # (Auto) 0.0 CBC/BMP Laboratory Tests 09/26/20 21:35 09/27/20 04:20 Microbiology Microbiology 09/26/20 Blood Culture, Received Pending 09/26/20 Respiratory Virus Panel (PCR) (FERCHO) - Final, Complete 09/26/20 Blood Culture, Received Pending Home Medications Scheduled Cephalexin (Keflex) 500 Mg Capsule, 500 MG PO BID STARTED 09/25/2020 Chlorthalidone (Chlorthalidone) 25 Mg Tablet, 25 MG PO QPM TAKES AT 1700 Ergocalciferol (Vitamin D2) (Vitamin D2) 50,000 Units Cap, 50,000 UNITS PO Q2WK EVERY OTHER THURSDAY Fexofenadine HCl (Suzanne Allergy) 180 Mg Tablet, 180 MG PO DAILY Magnesium Oxide (Magnesium Oxide) 400 Mg Tablet, 400 MG PO DAILY Omeprazole (Omeprazole) 20 Mg Capsule.dr, 20 MG PO DAILY Potassium Chloride (Potassium Chloride) 10 Meq Tab.er.prt, 10 MEQ PO DAILY Rivaroxaban (Xarelto) 20 Mg Tablet, 20 MG PO DAILY Scheduled PRN Acetaminophen (Tylenol Extra Strength) 500 Mg Tablet, 1,000 MG PO Q6H PRN for PAIN / FEVER Albuterol Sulfate (Proair Hfa) 8.5 Gm Hfa.aer.ad, 2 PUFF INH QID PRN for SHORTNESS OF BREATH Allergies Coded Allergies: meperidine (Verified Adverse Reaction, Intermediate, violent vomiting, 06/04/20) A-FIB/CHADSVASC A-FIB History Current/History of A-Fib/PAF?: No Current PO Anticoag Therapy: Yes GME ATTESTATION GME ATTESTATION My faculty preceptor for this patient encounter was physically present during the encounter and was fully available. All aspects of the patient interview, examination, medical decision making process, and medical care plan development were reviewed and approved by the faculty preceptor. The faculty preceptor is aware and concurs with the plan as stated in the body of this note and will attest to such by his/her cosignature. ATTENDING NOTE I, A Yousef, have independently examined this patient and performed my own physical exam, as well as reviewed the documentation and edited where necessary. I have discussed in detail with the resident / student the findings and plan of treatment as documented by the resident / student and edited their note. I agree with their findings and treatment plan and have edited their documentation. I will continue to follow the patient during this hospital stay. LOUIS NGUYEN DO Sep 27, 2020 04:55 SATISH LYNCH MD Sep 27, 2020 06:06
[2020-09-27 05:00] LABS: BLOOD UREA NITROGEN 15 MG/DL (7-18); CALCIUM LEVEL 7.3 MG/DL (8.8-10.2); CARBON DIOXIDE LEVEL 32 MEQ/L (21-32); CHLORIDE LEVEL 100 MEQ/L (98-107); CREATININE FOR GFR 0.68 MG/DL (0.55-1.30); GLOMERULAR FILTRATION RATE > 60.0 (>45); GLUCOSE, FASTING 112 MG/DL (70-100); POTASSIUM SERUM 3.3 MEQ/L (3.5-5.1); SODIUM LEVEL 138 MEQ/L (136-145)
[2020-09-27] MEDS ORDERED: VANCOMYCIN HCL 1,000 MG, VIAL MATE ADAPTER 1 EACH in D5W 250 ML IV ONE (05:00)
[2020-09-27] MEDS: FEXOFENADINE 60 MG TAB PO SCH (08:48)
[2020-09-27] MEDS: OMEPRAZOLE 20 MG CAP PO SCH (08:48)
[2020-09-27] MEDS: MAGNESIUM OXIDE 400 MG TAB (MAG-OX) PO SCH (08:49)
[2020-09-27] MEDS: RIVAROXABAN 20 MG TAB (XARELTO) PO SCH (08:50)
[2020-09-27] MEDS ORDERED: VANCOMYCIN HCL 1,000 MG, VIAL MATE ADAPTER 1 EACH in D5W 250 ML IV SCH (09:00)
[2020-09-27] MEDS ORDERED: ENOXAPARIN 40MG/0.4ML SYRINGE (J1650 PER 10MG) SC SCH (09:00)
[2020-09-27] MEDS: PIPERACILLIN/TAZOBACTAM SOD 4.5 GM in D5W MINI-BAG PLUS 50 ML IV SCH ×3 (10:12→21:53)
[2020-09-27] MEDS: ACETAMINOPHEN TAB 650MG DOSE (2X325MG) PO PRN ×2 (12:41→20:34)
[2020-09-27] MEDS: ONDANSETRON 4MG/2ML VIAL IV PRN ×2 (12:41→17:55)
--- NOTE | 2020-09-27 12:56 | IPNPDOC ---
Text Note Date of Service The patient was seen on 09/27/20. NOTE Subjective: Patient is a 70-year-old female with a PMHx of HTN, Hx of DVT (07/2020; on Xarelto), GERD who presented to the ER with fevers and weakness. Patient had recently seen urgent care center where she was diagnosed with UTI. Patient was prescribed Keflex and discharged home. Patient to the ER on 09/26, because of worsening weakness and fevers. Patient was admitted to the hospital service for further evaluation Patient was seen and examined at the bedside. Currently patient reports that she's feeling better than she did yesterday. She denies any nausea, vomiting, chest pain, shortness of breath or palpitations. Denies any urinary discomfort or diarrhea. Objective: Vitals (See below) General: Lying in bed, appears comfortable, AAOx3 HEENT: NC, AT CVS: RRR, +S1S2 Lungs: Fair air entry b/l, -w/r/r Abdomen: Soft, ND, NT Extremities: - Edema, - Calf tenderness Assessment and plan: Sepsis - likely 2/2 UTI - Patient had recently seen urgent care center for her urinary tract like symptoms and was prescribed Keflex - Currently, patient feels better than she did yesterday - Has continued to experience fever, but her blood pressure has now normalized - Leukocytosis improving; no lactic acidosis - PCT of 0.95 - Respiratory panel 09/26: Negative - UA completed on 09/26 was negative; Urine culture form 09/25 - does reveal greater than 100,000 gram-negative rods - Blood cultures 09/26: Pending - CXR 09/26: No evidence of consolidation of lung. - CT abdomen / pelvis 09/26: 1. Degenerative moderate to severe L4-L5 spinal stenosis. Degenerative stepwise L4-S1 anterolisthesis. 2. Moderate colonic diverticulosis without evidence for acute diverticulitis. Large cecal diverticulum measuring 3.5 cm. 3. Small gastroesophageal sliding type hiatal hernia. - Will DC Vancomycin; c/w Zosyn (Day #2) Hypokalemia - Will provide oral supplementation Systolic murmur - ECHO complete; report pending HTN - BP has improved - Will reduce rate of IV fluids - Will resume home medications within 24 hours DVT - Patient was diagnosed with a DVT in her left leg in the common femoral vein and extended from the greater saphenous vein junction on 07/31/2020 - Patient was status post endovenous laser treatment with closure of the visualized proximal portion of the greater saphenous vein prior to this - c/w Xarelto GERD - c/w Omeprazole DVT prophylaxis - c/w full anticoagulation with Xarelto Disposition: - Anticipate DC home tomorrow VS,Fishbone, I+O VS, Fishbone, I+O Laboratory Tests 09/26/20 21:35 09/27/20 04:20 Vital Signs Date Time Temp Pulse Resp B/P (MAP) Pulse Ox O2 Delivery O2 Flow Rate FiO2 09/27/20 12:00 100.3 94 20 147/76 (99) 98 Room Air I&O- Last 24 Hours up to 6 AM 09/27/20 06:00 Intake Total 1100 ml Output Total 430 ml Balance 670 ml VAUGHN GANDHI MD Sep 27, 2020 12:56
[2020-09-27] MEDS ORDERED: SLF 3 ML SYR IV PRN (13:15)
[2020-09-27] MEDS: SLF 3 ML SYR IV SCH ×2 (14:00→21:53)
[2020-09-28] VITALS (8 sets, daily range): BP systolic 114–135; BP diastolic 57–68; O2SAT 94–99
[2020-09-28] MEDS: PIPERACILLIN/TAZOBACTAM SOD 4.5 GM in D5W MINI-BAG PLUS 50 ML IV SCH (03:58)
[2020-09-28] MEDS: ACETAMINOPHEN TAB 650MG DOSE (2X325MG) PO PRN (05:10)
[2020-09-28 05:32] LABS: BASO % 0.3 % (0.0-1.0); EOS # 0.1 10^3/uL (0.0-0.5); EOS % 0.9 % (0.0-3.0); HEMATOCRIT 32.7 % (36.0-47.0); HEMOGLOBIN 10.5 g/dl (12.0-15.5); LYMPH # 2.1 10^3/uL (1.5-5.0); LYMPH % 19.3 % (24.0-44.0); MEAN CORPUSCULAR HEMOGLOBIN 28.8 pg (27.0-33.0); MEAN CORPUSCULAR HGB CONC 32.1 g/dl (32.0-36.5); MEAN CORPUSCULAR VOLUME 89.6 fl (80.0-96.0); MONO # 1.5 10^3/uL (0.0-0.8); MONO % 13.5 % (0.0-5.0); NEUTROPHILS # 7.2 10^3/uL (1.5-8.5); NEUTROPHILS % 65.5 % (36.0-66.0); PLATELET COUNT, AUTOMATED 168 10^3/uL (150-450); RED BLOOD COUNT 3.65 10^6/uL (4.00-5.40)
[2020-09-28 05:58] LABS: BLOOD UREA NITROGEN 9 MG/DL (7-18); GLUCOSE, FASTING 96 MG/DL (70-100)
[2020-09-28 05:59] LABS: CALCIUM LEVEL 8.3 MG/DL (8.8-10.2); CARBON DIOXIDE LEVEL 33 MEQ/L (21-32); CHLORIDE LEVEL 103 MEQ/L (98-107); GLOMERULAR FILTRATION RATE > 60.0 (>45); MAGNESIUM LEVEL 1.8 MG/DL (1.8-2.4); POTASSIUM SERUM 3.5 MEQ/L (3.5-5.1); SODIUM LEVEL 141 MEQ/L (136-145)
[2020-09-28] MEDS: SLF 3 ML SYR IV SCH (06:04)
[2020-09-28] MEDS ORDERED: CEFD300CAP PO (08:17)
[2020-09-28] MEDS: FEXOFENADINE 60 MG TAB PO SCH (08:28)
[2020-09-28] MEDS: MAGNESIUM OXIDE 400 MG TAB (MAG-OX) PO SCH (08:28)
[2020-09-28] MEDS: RIVAROXABAN 20 MG TAB (XARELTO) PO SCH (08:28)
[2020-09-28] MEDS: OMEPRAZOLE 20 MG CAP PO SCH (08:29)
--- NOTE | 2020-09-28 08:59 | ECGEPIP ---
[facility] - ED Test Date: 2020-09-26 Pat Name: VANESSA LLAMAS Department: Room: [place] [address] Gender: Female [facility] Aide: melania : 1950 Requested By: ADELAIDE Croft Order Number: [id number] Reading MD: Haylee Maxwell Measurements Intervals [place] Rate: 84 P: 23 OK: 144 QRS: -58 QRSD: 123 T: 19 QT: 397 QTc: 472 Interpretive Statements SINUS RHYTHM LEFT ANTERIOR FASCICULAR BLOCK POSSIBLE LATERAL MYOCARDIAL INFARCTION, PROBABLY OLD No prior Electronically Signed on 09-28-2020 8:59:20 EST by Haylee Maxwell
[2020-09-28] MEDS ORDERED: CEFDINIR 300 MG CAP (OMNICEF) PO SCH (09:00)
--- NOTE | 2020-09-28 10:27 | ECHO ---
DATE OF PROCEDURE: 09/27/2020 Age: 70 Gender: Female Height: 64 inches Weight: 180 pounds Body surface area: 1.88 m2 PATIENT LOCATION: Inpatient progressive care unit (PCU), Room 3223. REFERRING PHYSICIAN: Aaron Rodrigues DO. INDICATION: Murmur. MEASUREMENTS: 2D Measurements: RV 3.5 cm LV 4.4 cm Septum 1.0 cm Posterior wall 1.0 cm Aortic Root 3.0 cm LA 3.6 cm LVEF 65 % Doppler Measurements: AV 1.78 m/s LVOT 1.16 m/s LVOT diameter 2.0 cm MV-E 93, A 40, E/A ratio 2.3 Early mitral deceleration time 172 m/s E prime medial 8.6, A prime medial 8, E prime lateral 12.6 PV 0.8 m/s Pulmonary artery acceleration time 140 m/s RVSP 27 mmHg IVC 2.0 cm COMMENTS: Normal sinus rhythm without intraventricular conduction disturbance. M-mode and two-dimensional echocardiography was performed with pulse, continuous wave, color flow, and tissue Doppler studies. Normal left ventricular size, wall thickness, and wall motion. Normal left atrial size and Doppler assessment of left ventricular (LV) diastolic function and estimated mean left atrial pressure. Normal right heart chamber sizes and motion and estimated pulmonary arterial pressure. Normal inferior vena cava (IVC) size and collapse against an elevated central venous pressure. Normal aortic dimensions. Mild aortic valvular sclerosis without stenosis and no insufficiency. Mild degenerative changes of the mitral valvular apparatus without inflow tract obstruction and only very mild insufficiency. Normal appearing tricuspid valve with mild-moderate insufficiency. No apparent intracardiac mass or pericardial effusion. MTDD
[2020-09-28] MEDS ORDERED: AMLO1TAB24 PO (11:21)
--- NOTE | 2020-09-28 11:23 | DS.PDOC ---
Discharge Summary General Date of Admission Sep 27, 2020 at 03:02 Date of Discharge 09/28/2020 Discharge Summary PROCEDURES PERFORMED DURING STAY: [None]. ADMITTING DIAGNOSES / DISCHARGE DIAGNOSES: Sepsis - likely 2/2 UTI s/p Hypokalemia Reported systolic murmur HTN DVT GERD DVT prophylaxis COMPLICATIONS/CHIEF COMPLAINT: Weakness / Fevers HISTORY OF PRESENT ILLNESS: Patient is a 70-year-old female with a PMHx of HTN, Hx of DVT (07/2020; on Xarelto), GERD who presented to the ER with fevers and weakness. Patient had recently seen urgent care center where she was diagnosed with UTI. Patient was prescribed Keflex and discharged home. Patient to the ER on 09/26, because of worsening weakness and fevers. Patient was admitted to the hospital service for further evaluation. HOSPITAL COURSE: Sepsis - likely 2/2 UTI - Patient had recently seen urgent care center for her urinary tract like sy mptoms and was prescribed Keflex - Continues to feel better; has cleared PT - Hemodynamically stable; no fevers in 24 hours - Leukocytosis continues to improve; no lactic acidosis - PCT of 0.95 - Respiratory panel 09/26: Negative - UA completed on 09/26 was negative; Urine culture form 09/25: E. Coli - Blood cultures 09/26: Pending - CXR 09/26: No evidence of consolidation of lung. - CT abdomen / pelvis 09/26: 1. Degenerative moderate to severe L4-L5 spinal stenosis. Degenerative stepwise L4-S1 anterolisthesis. 2. Moderate colonic diverticulosis without evidence for acute diverticulitis. Large cecal diverticulum measuring 3.5 cm. 3. Small gastroesophageal sliding type hiatal hernia. - Will start Cefdinir - continue on discharge; s/p Vancomycin and Zosyn (Antibiotic day #3) s/p Hypokalemia Reported systolic murmur - ECHO reviewed; no significant valvular abnormalities noted HTN - BP has improved - s/p IV fluids - Will DC chlorthalidone on discharge - Will start Amlodipine DVT - Patient was diagnosed with a DVT in her left leg in the common femoral vein and extended from the greater saphenous vein junction on 07/31/2020 - Patient was status post endovenous laser treatment with closure of the visualized proximal portion of the greater saphenous vein prior to this - c/w Xarelto GERD - c/w Omeprazole DVT prophylaxis - c/w full anticoagulation with Xarelto DISCHARGE MEDICATIONS: Please see below. ALLERGIES: Please see below. PHYSICAL EXAMINATION ON DISCHARGE: Vitals (See below) General: Lying in bed, appears to be comfortable without any acute distress, AAOx3 HEENT: NC, AT CVS: +S1S2 Lungs: Fair air entry b/l, no appreciable wheezing / rhonchi / rales Abdomen: Soft, non-distended, non-tender Extremities: No appreciable edema, - Calf tenderness LABORATORY DATA: Please see below. ACTIVITY: [As tolerated]. DISCHARGE PLAN: Follow up with PCP within 7 days; referral to Urology or [facility] for consideration of repair for prolapsed blader Remain compliant with treatment plan and medications Return to the ER if you experience any problems DISPOSITION: Home DISCHARGE CONDITION: [Stable]. TIME SPENT ON DISCHARGE: 35 minutes. Vital Signs/I&Os Vital Signs Date Time Temp Pulse Resp B/P (MAP) Pulse Ox O2 Delivery O2 Flow Rate FiO2 09/28/20 08:00 96.9 64 18 118/57 (77) 95 Room Air 09/28/20 06:00 1.0 I&O- Last 24 Hours up to 6 AM 09/28/20 06:00 Intake Total 2170 ml Output Total 1100 ml Balance 1070 ml Laboratory Data Labs 24H Laboratory Tests 2 09/28/20 05:07: Immature Granulocyte % (Auto) 0.5, Neutrophils (%) (Auto) 65.5, Lymphocytes (%) (Auto) 19.3L, Monocytes (%) (Auto) 13.5H, Eosinophils (%) (Auto) 0.9, Basophils (%) (Auto) 0.3, Neutrophils # (Auto) 7.2, Lymphocytes # (Auto) 2.1, Monocytes # (Auto) 1.5H, Eosinophils # (Auto) 0.1, Basophils # (Auto) 0.0, Nucleated Red Blood Cells % (auto) 0.0, Anion Gap 5L, Glomerular Filtration Rate > 60.0, Calcium Level 8.3L, Magnesium Level 1.8 CBC/BMP Laboratory Tests 09/28/20 05:07 Microbiology Microbiology 09/26/20 Blood Culture - Preliminary, Resulted No growth after 24 hours . All specim... 09/26/20 Respiratory Virus Panel (PCR) (FERCHO) - Final, Complete 09/26/20 Blood Culture - Preliminary, Resulted No growth after 24 hours . All specim... Discharge Medications Scheduled Cefdinir (Cefdinir) 300 Mg Capsule, 1 CAP PO BID Chlorthalidone (Chlorthalidone) 25 Mg Tablet, 25 MG PO QPM, (Reported) TAKES AT 1700 Ergocalciferol (Vitamin D2) (Vitamin D2) 50,000 Units Cap, 50,000 UNITS PO Q2WK, (Reported) EVERY OTHER THURSDAY Fexofenadine HCl (Suzanne Allergy) 180 Mg Tablet, 180 MG PO DAILY, (Reported) Magnesium Oxide (Magnesium Oxide) 400 Mg Tablet, 400 MG PO DAILY, (Reported) Omeprazole (Omeprazole) 20 Mg Capsule.dr, 20 MG PO DAILY, (Reported) Potassium Chloride (Potassium Chloride) 10 Meq Tab.er.prt, 10 MEQ PO DAILY, (Reported) Rivaroxaban (Xarelto) 20 Mg Tablet, 20 MG PO DAILY, (Reported) Scheduled PRN Acetaminophen (Tylenol Extra Strength) 500 Mg Tablet, 1,000 MG PO Q6H PRN for PAIN / FEVER, (Reported) Albuterol Sulfate (Proair Hfa) 8.5 Gm Hfa.aer.ad, 2 PUFF INH QID PRN for SHORTNESS OF BREATH, (Reported) Allergies Coded Allergies: meperidine (Verified Adverse Reaction, Intermediate, violent vomiting, 06/04/20) VAUGHN GANDHI MD Sep 28, 2020 11:23
[2020-09-28] MEDS ORDERED: POTASSIUM CHLORIDE 10 MEQ SR TABLET PO ONE (11:30)
== END 2020-09-28 12:31 | disposition home or self-care (01) | DRG 720 ==
LOC: M ED 20:51 → M ED INP 09-27 03:02 → ENRESERV 09-27 03:33 → M PCU 09-27 05:00
PROVIDERS: ADMIT Family Medicine; ATTEND Internal Medicine
DX: A41.9 Sepsis, unspecified organism (principal); I10 Essential (primary) hypertension; E87.6 Hypokalemia; N39.0 Urinary tract infection, site not specified; K21.9 Gastro-esophageal reflux disease without esophagitis; Z86.718 Personal history of other venous thrombosis and embolism; Z79.01 Long term (current) use of anticoagulants; Z79.899 Other long term (current) drug therapy; Z88.8 Allergy status to other drugs, medicaments and biological substances; Z66 Do not resuscitate

== ENCOUNTER → 2020-12-09 | Outpatient (CLI) | payer BC ==
[~2020-12-09] MED LIST changes: +AMLO1TAB24 PO; +CEFD300CAP PO; +KEFL500C17 PO; +MAGN400C2 PO; +MAGN400T2 PO; +XARE10TA PO; +XARE20TA PO
--- NOTE | 2020-12-11 10:38 | SLEEPCENT ---
NOCTURNAL POLYSOMNOGRAPHY DATE: 12/09/2020 ORDERED BY: DESTINI Sue Nocturnal polysomnography was performed for the titration of pressure therapy in this patient with a clinical diagnosis of obstructive sleep apnea syndrome confirmed by home testing revealing a respiratory event index of 13.4. For testing a ResMed N30 nasal mask of standard size was used, 4 cm of water pressure were applied to the circuit, and the lights were extinguished. 7 hours and 52 minutes of data were reviewed. There were 238 minutes of sleep identified. Sleep latency was prolonged at 132 minutes. REM latency was prolonged at 120.5 minutes. Sleep architecture improved late in the study. There were two REM cycles noted. Overall sleep efficiency was only 51.1% due to wake after sleep onset. The electrocardiogram showed a sinus rhythm with an average heart rate of 58 beats per minute. Rate range 45 to 80. EEG showed normal waveforms for wake and sleep. Respiratory events were fully palliated with CPAP at a pressure of +6 and remaining measures of sleep physiology were normal. IMPRESSION: Obstructive sleep apnea syndrome (G47.33). RECOMMENDATION: Nightly use of pressure therapy 6 cm of water.
== END ==
LOC: M SLEEP 20:00
PROVIDERS: ATTEND Nurse Practitioner Family
DX: G47.33 Obstructive sleep apnea (adult) (pediatric) (principal)

== ENCOUNTER 2021-01-28 13:29 | Emergency (ER) | payer OTHER, BC ==
[~2021-01-28] VITALS: Ht 162.6 cm; Wt 84.0 kg
[2021-01-28] MEDS ORDERED: OMEP-218 (13:52)
[2021-01-28] MEDS ORDERED: POTA10CA32 (13:52)
[2021-01-28] MEDS ORDERED: CHLO125TA (13:52)
[2021-01-28] MEDS ORDERED: LIDOCAINE 2% MDV 20ML VIAL SC ONE (14:15)
[2021-01-28] MEDS ORDERED: ACETAMINOPHEN 325 MG TAB PO ONE (14:15)
[2021-01-28] MEDS ORDERED: LIDO5DIS41 TD (14:54)
[2021-01-28] MEDS ORDERED: ROBA750T4 PO (14:54)
[2021-01-28 15:00] VITALS: BP 170/98
== END 2021-01-28 15:05 | disposition home or self-care (01) ==
LOC: M ED 13:29
DX: M62.838 Other muscle spasm (principal); M62.830 Muscle spasm of back; X50.0XXA Overexertion from strenuous movement or load, initial encounter; Y92.9 Unspecified place or not applicable; Y93.9 Activity, unspecified; Y99.0 Civilian activity done for income or pay; I10 Essential (primary) hypertension; J44.9 Chronic obstructive pulmonary disease, unspecified; K21.9 Gastro-esophageal reflux disease without esophagitis; K57.30 Diverticulosis of large intestine without perforation or abscess without bleeding; Z86.718 Personal history of other venous thrombosis and embolism; Z88.8 Allergy status to other drugs, medicaments and biological substances; Z79.899 Other long term (current) drug therapy

== ENCOUNTER 2022-04-21 11:00 | Emergency (ER) | payer BC, MEDICARE, OTHER ==
[~2022-04-21] VITALS: Ht 160 cm; Wt 85.7 kg
[~2022-04-21 11:00] MED LIST changes: +CHLO125TA; +ERGO500029 PO; +LIDO5DIS41 TD; +OMEP-173; +POTA-149 PO; +POTA10CA32; -POTA10TA16 PO; +ROBA750T4 PO; -VITA50005 PO
[2022-04-21] MEDS ORDERED: IBUP-1114 PO (11:09)
[2022-04-21] MEDS ORDERED: IBUP200C25 PO (11:26)
[2022-04-21 12:48] VITALS: BP 130/70
== END 2022-04-21 12:55 | disposition home or self-care (01) ==
LOC: M ED 11:00
DX: S92.402A Displaced unspecified fracture of left great toe, initial encounter for closed fracture (principal); W01.0XXA Fall on same level from slipping, tripping and stumbling without subsequent striking against object, initial encounter; I10 Essential (primary) hypertension; Y92.009 Unspecified place in unspecified non-institutional (private) residence as the place of occurrence of the external cause; Y93.9 Activity, unspecified; Y99.9 Unspecified external cause status; Z88.6 Allergy status to analgesic agent; Z79.899 Other long term (current) drug therapy

== ENCOUNTER → 2022-05-20 | Outpatient (CLI) | payer BC ==
[~2022-05-20] MED LIST changes: +IBUP-1114 PO
== END ==
LOC: M SOG 08:01
PROVIDERS: ATTEND Orthopaedic Surgery
DX: S92.425A Nondisplaced fracture of distal phalanx of left great toe, initial encounter for closed fracture (principal); X58.XXXA Exposure to other specified factors, initial encounter; Y92.9 Unspecified place or not applicable

== ENCOUNTER → 2022-06-10 | Outpatient (CLI) | payer BC | LOC: M SOG 08:06 | PROVIDERS: ATTEND Orthopaedic Surgery | DX: S92.425D Nondisplaced fracture of distal phalanx of left great toe, subsequent encounter for fracture with routine healing (principal) ==

== ENCOUNTER → 2022-07-16 | Outpatient (REF) | payer BC | LOC: M LAB REF 16:09 | PROVIDERS: ATTEND Physician Assistant | DX: R30.0 Dysuria (principal) ==

== ENCOUNTER → 2023-05-20 | Outpatient (CLI) | payer BC ==
[~2023-05-20] MED LIST changes: -POTA10CA32; +POTA10CA60
== END ==
LOC: M SOG 08:05
PROVIDERS: ATTEND Orthopaedic Surgery
DX: M25.562 Pain in left knee (principal); M25.561 Pain in right knee

== ENCOUNTER → 2023-12-18 | Outpatient (CLI) | payer BC | LOC: M SOG 08:04 | PROVIDERS: ATTEND Orthopaedic Surgery | DX: M17.12 Unilateral primary osteoarthritis, left knee (principal); M25.561 Pain in right knee ==

== ENCOUNTER → 2024-01-04 | Outpatient (CLI) | payer BC ==
[2024-01-05 12:11] LABS: ALBUMIN 3.7 G/DL (3.2-5.2); ALKALINE PHOSPHATASE 66 U/L (46-116); ALT/SGPT 18 U/L (7.0-40); AST/SGOT 20 U/L (<34); BILIRUBIN,TOTAL 0.4 MG/DL (0.3-1.2); BLOOD UREA NITROGEN 24 MG/DL (9-23); CALCIUM LEVEL 8.8 MG/DL (8.3-10.6); CARBON DIOXIDE LEVEL 31 MMOL/L (20-31); CHLORIDE LEVEL 104 MMOL/L (98-107); CREATININE FOR GFR 0.64 MG/DL (0.55-1.30); GLOMERULAR FILTRATION RATE > 60.0 (>39); GLUCOSE, FASTING 101 MG/DL (74-106); MAGNESIUM LEVEL 1.4 MG/DL (1.8-2.4); POTASSIUM SERUM 3.9 MMOL/L (3.5-5.1); SODIUM LEVEL 141 MMOL/L (136-145); TOTAL 25(OH) VITAMIN D 65.7 NG/ML (20.0-100.0); TOTAL PROTEIN 6.7 G/DL (5.7-8.2)
[2024-01-05 12:12] LABS: FREE T4 1.26 NG/DL (0.89-1.76)
[2024-01-05 12:13] LABS: THYROID STIMULATING HORMONE 2.182 uIU/ML (0.55-4.78)
== END ==
LOC: M WUC 15:45
PROVIDERS: ATTEND Family Medicine
DX: I10 Essential (primary) hypertension (principal); E55.9 Vitamin D deficiency, unspecified; R55 Syncope and collapse

== ENCOUNTER 2024-04-29 21:07 | Emergency (ER) | payer BC, MEDICARE ==
[~2024-04-29] VITALS: Ht 162.6 cm; Wt 81.8 kg
[~2024-04-29 21:07] MED LIST changes: -POTA10CA60; +POTA10CA70
[2024-04-29 22:12] LABS: BASO % 0.3 % (0.0-1.0); EOS # 0.2 10^3/uL (0.0-0.5); EOS % 1.9 % (0.0-3.0); HEMATOCRIT 38.4 % (36.0-47.0); HEMOGLOBIN 12.7 g/dl (12.0-15.5); LYMPH # 2.2 10^3/uL (1.5-5.0); LYMPH % 23.6 % (24.0-44.0); MEAN CORPUSCULAR HEMOGLOBIN 29.4 pg (27.0-33.0); MEAN CORPUSCULAR HGB CONC 33.1 g/dl (32.0-36.5); MEAN CORPUSCULAR VOLUME 88.9 fl (80.0-96.0); MONO # 0.8 10^3/uL (0.0-0.8); MONO % 8.4 % (2.0-8.0); NEUTROPHILS # 6.2 10^3/uL (1.5-8.5); NEUTROPHILS % 65.6 % (36.0-66.0); PLATELET COUNT, AUTOMATED 194 10^3/uL (150-450); RED BLOOD COUNT 4.32 10^6/uL (4.00-5.40); WHITE BLOOD COUNT 9.5 10^3/uL (4.0-10.0)
[2024-04-29 22:33] LABS: CK-MB VALUE MASS 1.8 NG/ML (<3.6)
[2024-04-29 22:48] LABS: BLOOD UREA NITROGEN 28 MG/DL (9-23); CALCIUM LEVEL 8.5 MG/DL (8.3-10.6); CARBON DIOXIDE LEVEL 31 MMOL/L (20-31); CHLORIDE LEVEL 105 MMOL/L (98-107); CPK CREATINE PHOSPHOKINASE 93 U/L (34-145); CREATININE FOR GFR 0.74 MG/DL (0.55-1.30); GLOMERULAR FILTRATION RATE > 60.0 (>39); GLUCOSE, FASTING 113 MG/DL (74-106); MB/CK RELATIVE INDEX 1.93 (< OR =4); POTASSIUM SERUM 2.9 MMOL/L (3.5-5.1); SODIUM LEVEL 142 MMOL/L (136-145)
[2024-04-29 23:01] LABS: MAGNESIUM LEVEL 1.6 MG/DL (1.8-2.4)
[2024-04-29] MEDS: POTASSIUM CHLORIDE 10% LIQ 20MEQ/15ML UDC PO ONE (23:01)
[2024-04-29] MEDS: ONDANSETRON 4MG 2ML VIAL IV ONE (23:01)
[2024-04-29] MEDS: NS 1,000 ML IV ONE (23:01)
[2024-04-29] MEDS ORDERED: ISOVUE-370 76% 100ML VIAL As Ordered ONE (23:02)
[2024-04-30] MEDS: POTASSIUM CHLORIDE 10% LIQ 20MEQ/15ML UDC PO ONE (00:22)
[2024-04-30] MEDS: MAG SULF 1GM/100ML (MAG RUN) 1 GM in IV 1 EA IV ONE (00:56)
[2024-04-30 04:15] VITALS: BP 135/65; TEMP 98.9; O2SAT 94
== END 2024-04-30 06:06 | disposition home or self-care (01) ==
LOC: M ED 21:07
DX: R55 Syncope and collapse (principal); E87.6 Hypokalemia; E83.42 Hypomagnesemia; I44.4 Left anterior fascicular block; I10 Essential (primary) hypertension; K21.9 Gastro-esophageal reflux disease without esophagitis; Z88.5 Allergy status to narcotic agent; Z79.1 Long term (current) use of non-steroidal anti-inflammatories (NSAID); Z79.810 Long term (current) use of selective estrogen receptor modulators (SERMs); Z79.899 Other long term (current) drug therapy; Z90.89 Acquired absence of other organs
CPT/HCPCS: 70450; 70496; 70498; 80048; 82550; 82553; 83735; 84484; 85025; 93005; 96361; 96365; 96366; 96375; 99285; J2405; J3475; Q9967

== ENCOUNTER → 2024-05-02 | Outpatient (REF) | payer BC ==
[2024-05-02 19:33] LABS: MAGNESIUM LEVEL 1.4 MG/DL (1.8-2.4); POTASSIUM SERUM 3.6 MMOL/L (3.5-5.1)
== END ==
LOC: M LABWUC 16:44
PROVIDERS: ATTEND Family Medicine
DX: E83.42 Hypomagnesemia (principal); E87.6 Hypokalemia

== ENCOUNTER → 2024-06-08 | Outpatient (REF) | payer BC | LOC: M LAB REF 16:26 | PROVIDERS: ATTEND Nurse Practitioner Family | DX: R10.814 Left lower quadrant abdominal tenderness (principal) ==

== ENCOUNTER → 2024-08-08 | Outpatient (CLI) | payer BC ==
[2024-08-08 16:32] LABS: BASO % 0.3 % (0.0-1.0); EOS # 0.1 10^3/uL (0.0-0.5); EOS % 1.5 % (0.0-3.0); HEMATOCRIT 40.5 % (36.0-47.0); HEMOGLOBIN 13.4 g/dl (12.0-15.5); LYMPH # 2.1 10^3/uL (1.5-5.0); LYMPH % 31.4 % (24.0-44.0); MEAN CORPUSCULAR HEMOGLOBIN 29.6 pg (27.0-33.0); MEAN CORPUSCULAR HGB CONC 33.1 g/dl (32.0-36.5); MEAN CORPUSCULAR VOLUME 89.4 fl (80.0-96.0); MONO # 0.6 10^3/uL (0.0-0.8); MONO % 9.1 % (2.0-8.0); NEUTROPHILS # 3.9 10^3/uL (1.5-8.5); NEUTROPHILS % 57.4 % (36.0-66.0); PLATELET COUNT, AUTOMATED 202 10^3/uL (150-450); RED BLOOD COUNT 4.53 10^6/uL (4.00-5.40); WHITE BLOOD COUNT 6.7 10^3/uL (4.0-10.0)
[2024-08-08 16:44] LABS: APPEARANCE, URINE HAZY (CLEAR); BACTERIA, URINE AUTO 1+ (NEGATIVE); BILIRUBIN, URINE AUTO NEGATIVE (NEGATIVE); BLOOD, URINE BLOOD NEGATIVE (NEGATIVE); COLOR, URINE YELLOW (YELLOW); GLUCOSE, URINE (UA) AUTO NEGATIVE (NEGATIVE); KETONE, URINE AUTO NEGATIVE (NEGATIVE); LEUKOCYTE ESTERASE, URINE AUTO 1+ (NEGATIVE); MUCUS, URINE SMALL (NEGATIVE); NITRITE, URINE AUTO NEGATIVE (NEGATIVE); PROTEIN, URINE AUTO NEGATIVE (NEGATIVE); RBC, URINE AUTO 1 /HPF (0-3); SPECIFIC GRAVITY URINE AUTO 1.013 (1.002-1.035); SQUAMOUS EPITHELIAL CELL UR AU 4 /HPF (0-6); UROBILINOGEN, URINE AUTO 0.2 mg/dL (0.0-2.0); WBC, URINE AUTO 45 /HPF (0-3)
[2024-08-08 17:02] LABS: ALBUMIN 3.6 G/DL (3.2-5.2); ALKALINE PHOSPHATASE 80 U/L (46-116); ALT/SGPT 17 U/L (7.0-40); AST/SGOT 19 U/L (<34); BILIRUBIN,TOTAL 0.5 MG/DL (0.3-1.2); BLOOD UREA NITROGEN 18 MG/DL (9-23); CALCIUM LEVEL 8.9 MG/DL (8.3-10.6); CARBON DIOXIDE LEVEL 33 MMOL/L (20-31); CHLORIDE LEVEL 102 MMOL/L (98-107); CHOLESTEROL LEVEL 236 MG/DL (<200); CHOLESTEROL RISK RATIO 3.23 (<5); CREATININE FOR GFR 0.64 MG/DL (0.55-1.30); GLOMERULAR FILTRATION RATE > 60.0 (>39); GLUCOSE, FASTING 94 MG/DL (74-106); HDL CHOLESTEROL 72.9 MG/DL (>40); LDL CHOLESTEROL 146.3 MG/DL (<100); MAGNESIUM LEVEL 1.6 MG/DL (1.8-2.4); NON-HDL-C 163.1 MG/DL; POTASSIUM SERUM 3.3 MMOL/L (3.5-5.1); SODIUM LEVEL 140 MMOL/L (136-145); TOTAL PROTEIN 6.6 G/DL (5.7-8.2); TRIGLYCERIDES LEVEL 84 MG/DL (<150)
== END ==
LOC: M WUC 09:32
PROVIDERS: ATTEND Family Medicine
DX: E78.5 Hyperlipidemia, unspecified (principal); R55 Syncope and collapse

== ENCOUNTER → 2024-11-06 | Outpatient (REF) | payer BC ==
[~2024-11-06] MED LIST changes: -ADV250INH INH; +ADVA1AER9 INH
== END ==
LOC: M LAB REF 17:58
PROVIDERS: ATTEND Student in an Organized Health Care Education/Training Program
DX: R06.02 Shortness of breath (principal)

== ENCOUNTER → 2024-11-07 | Outpatient (CLI) | payer BC | LOC: M WUC 10:54 | PROVIDERS: ATTEND Student in an Organized Health Care Education/Training Program | DX: R06.02 Shortness of breath (principal) ==

== ENCOUNTER → 2025-01-19 | Outpatient (CLI) | payer BC ==
[~2025-01-19] MED LIST changes: +PROHANCE 279.3MG/ML 15ML VIAL As Ordered ONE; +PROHANCE 279.3MG/ML 5ML VIAL As Ordered ONE
== END ==
LOC: M RAD 08:24
PROVIDERS: ATTEND Radiology Radiation Oncology
DX: H93.3X1 Disorders of right acoustic nerve (principal); J01.00 Acute maxillary sinusitis, unspecified
CPT/HCPCS: 70553; A9576

== ENCOUNTER → 2025-02-09 | Outpatient (CLI) | payer BC ==
[~2025-02-09] MED LIST changes: -CHLO125TA; +CHLO125TA PO; +EQ S0.65 NARES; -PROHANCE 279.3MG/ML 15ML VIAL As Ordered ONE; -PROHANCE 279.3MG/ML 5ML VIAL As Ordered ONE
== END ==
LOC: M RAD 16:45
PROVIDERS: ATTEND Student in an Organized Health Care Education/Training Program
DX: M51.34 Other intervertebral disc degeneration, thoracic region (principal); M54.2 Cervicalgia

== ENCOUNTER 2025-02-10 18:11 | Observation (INO) | payer BC, MEDICARE ==
[~2025-02-10] VITALS: Ht 162.6 cm; Wt 80.8 kg
[~2025-02-10 18:11] MED LIST changes: -EQ S0.65 NARES
[2025-02-10 23:41] LABS: BASO % 0.2 % (0.0-1.0); EOS # 0.1 10^3/uL (0.0-0.5); EOS % 0.3 % (0.0-3.0); HEMATOCRIT 40.4 % (36.0-47.0); HEMOGLOBIN 13.5 g/dl (12.0-15.5); LYMPH # 3.3 10^3/uL (1.5-5.0); MEAN CORPUSCULAR HEMOGLOBIN 29.1 pg (27.0-33.0); MEAN CORPUSCULAR HGB CONC 33.4 g/dl (32.0-36.5); MEAN CORPUSCULAR VOLUME 87.1 fl (80.0-96.0); MONO # 1.6 10^3/uL (0.0-0.8); MONO % 9.8 % (2.0-8.0); NEUTROPHILS # 11.4 10^3/uL (1.5-8.5); NEUTROPHILS % 69.3 % (36.0-66.0); PLATELET COUNT, AUTOMATED 244 10^3/uL (150-450); RED BLOOD COUNT 4.64 10^6/uL (4.00-5.40); WHITE BLOOD COUNT 16.4 10^3/uL (4.0-10.0)
[2025-02-11 00:09] LABS: BLOOD UREA NITROGEN 17 MG/DL (9-23); CALCIUM LEVEL 9.6 MG/DL (8.3-10.6); CARBON DIOXIDE LEVEL 34 MMOL/L (20-31); CHLORIDE LEVEL 97 MMOL/L (98-107); CREATININE FOR GFR 0.71 MG/DL (0.55-1.30); GLOMERULAR FILTRATION RATE > 60.0 (>39); GLUCOSE, FASTING 111 MG/DL (74-106); POTASSIUM SERUM 3.1 MMOL/L (3.5-5.1); SODIUM LEVEL 142 MMOL/L (136-145)
[2025-02-11] MEDS ORDERED: ACETAMINOPHEN 325 MG TAB As Ordered ONE (00:18)
[2025-02-11] MEDS: ACETAMINOPHEN 325 MG TAB PO ONE (00:19)
[2025-02-11] MEDS ORDERED: PIPERACILLIN/TAZOBACTAM SOD 4.5 GM in DEXTROSE 5% (D5W) ADV/MINI-BAG 50 ML IV SCH (01:20)
[2025-02-11] MEDS ORDERED: VANCOMYCIN HCL 2,020 MG in IV FLUID PLACE HOLDER 1 EA IV ONE (01:25)
[2025-02-11 01:36] LABS: BASO % 0.2 % (0.0-1.0); EOS % 0.2 % (0.0-3.0); HEMOGLOBIN 12.1 g/dl (12.0-15.5); LYMPH # 1.6 10^3/uL (1.5-5.0); LYMPH % 12.6 % (24.0-44.0); MEAN CORPUSCULAR HEMOGLOBIN 29.5 pg (27.0-33.0); MEAN CORPUSCULAR HGB CONC 33.6 g/dl (32.0-36.5); MEAN CORPUSCULAR VOLUME 87.8 fl (80.0-96.0); MONO # 1.2 10^3/uL (0.0-0.8); NEUTROPHILS % 77.5 % (36.0-66.0); PLATELET COUNT, AUTOMATED 194 10^3/uL (150-450); WHITE BLOOD COUNT 12.9 10^3/uL (4.0-10.0)
[2025-02-11] MEDS: NS (Normal Saline) 0.9% 2,420 ML in IV 1 EA IV ONE (01:39)
[2025-02-11 01:40] LABS: ERYTHROCYTE SEDIMENTATION RATE 68 mm/hr (0-30)
[2025-02-11] MEDS: PIPERACILLIN/TAZOBACTAM SOD 4.5 GM in DEXTROSE 5% (D5W) ADV/MINI-BAG 50 ML IV SCH (01:40)
[2025-02-11 01:43] LABS: ABG BASE EXCESS 4.9 (-2.0-2.0); ABG HCO3 27.9 MMOL/L (22.0-26.0); ABG O2 SATURATION 92.5 % (95.0-99.0); ABG PARTIAL PRESSURE CO2 35.8 mmHg (35.0-45.0); ABG PARTIAL PRESSURE O2 61.5 mmHg (75.0-100.0); ABG STANDARD HCO3 28.8 MMOL/L. (22.0-26.0)
[2025-02-11] MEDS ORDERED: VANCOMYCIN HCL 1,000 MG, VIAL MATE ADAPTER 1 EACH in NS 250 ML IV SCH (01:50)
[2025-02-11 02:04] LABS: AMYLASE 53 U/L (30-118)
[2025-02-11 02:43] LABS: ALBUMIN 2.9 G/DL (3.2-5.2); ALKALINE PHOSPHATASE 74 U/L (35-104); ALT/SGPT 14 U/L (7.0-40); AST/SGOT 14 U/L (<34); BILIRUBIN,DIRECT 0.2 MG/DL (<0.4); BILIRUBIN,TOTAL 0.7 MG/DL (0.3-1.2); BLOOD UREA NITROGEN 18 MG/DL (9-23); C REACTIVE PROTEIN QUANTITATIV 12.97 MG/DL (<1.0); CALCIUM LEVEL 9.1 MG/DL (8.3-10.6); CARBON DIOXIDE LEVEL 31 MMOL/L (20-31); CHLORIDE LEVEL 98 MMOL/L (98-107); CREATININE FOR GFR 0.65 MG/DL (0.55-1.30); GLOMERULAR FILTRATION RATE > 60.0 (>39); GLUCOSE, FASTING 119 MG/DL (74-106); POTASSIUM SERUM 2.6 MMOL/L (3.5-5.1); SODIUM LEVEL 139 MMOL/L (136-145); TOTAL PROTEIN 6.1 G/DL (5.7-8.2)
[2025-02-11] MEDS ORDERED: ISOVUE-370 76% 100ML VIAL As Ordered ONE (02:49)
[2025-02-11] MEDS: POTASSIUM CHLORIDE 10MEQ SR TABLET PO SCH ×2 (03:05→09:48)
[2025-02-11] MEDS: KCL 10MEQ/100ML SWI (KRUN) 10 MEQ in IV 1 EA IV SCH (03:36)
[2025-02-11 03:56] LABS: KETONE, URINE AUTO RFX 1+ mg/dL (NEGATIVE); LEUKOCYTE ESTERASE UR AUTO RFX TRACE (NEGATIVE); MUCUS, URINE RFX SMALL (NEGATIVE); NITRITE, URINE AUTO RFX NEGATIVE (NEGATIVE); RBC, URINE AUTO RFX 0 /HPF (0-3); SQUAM EPITHELIAL CELL UR AURFX 3 /HPF (0-6); WBC, URINE AUTO RFX 5 /HPF (0-3)
[2025-02-11] MEDS: ENOXAPARIN 100MG/1ML SYRINGE (J1650 PER 10MG) SC ONE (04:23)
[2025-02-11] MEDS: VANCOMYCIN HCL 1,750 MG, VIAL MATE ADAPTER 1 EACH in NS 500 ML IV ONE (04:36)
[2025-02-11] MEDS: KETOROLAC 30 MG/ML 1ML VIAL IV ONE (06:00)
[2025-02-11] MEDS ORDERED: EQ S0.65 NARES (06:34)
[2025-02-11] MEDS ORDERED: HOME MED LIST COMPLETE! XX SCH (06:40)
[2025-02-11] MEDS ORDERED: IBUPROFEN 600MG TAB PO PRN (08:10)
[2025-02-11] MEDS: NS (Normal Saline) 0.9% 1,000 ML IV ONE (08:27)
[2025-02-11 08:39] LABS: MAGNESIUM LEVEL 1.3 MG/DL (1.8-2.4)
[2025-02-11] MEDS: cefTRIAXone SOD 1 GM in DEXTROSE 5% (D5W) ADV/MINI-BAG 50 ML IV SCH (09:47)
[2025-02-11] MEDS: MAGNESIUM OXIDE 400MG TAB (MAG-OX) PO SCH ×2 (09:48→19:57)
[2025-02-11] MEDS: APIXABAN 5 MG TAB (ELIQUIS) PO SCH (09:48)
[2025-02-11] MEDS: OMEPRAZOLE 20MG CAP PO SCH (09:48)
[2025-02-11] MEDS ORDERED: PERCOCET 5MG/325MG TAB PO PRN (10:35)
[2025-02-11] MEDS: SODIUM CHLORIDE NASAL 0.65% SPRAY BTL (OCEAN) SCH (11:13)
[2025-02-11] MEDS: MAG SULF 1GM/100ML (MAG RUN) 1 GM in IV 1 EA IV SCH (11:18)
[2025-02-11 11:24] LABS: INR 1.11; PARTIAL THROMBOPLASTIN TIME 42.5 SECONDS (24.8-34.2); PROTHROMBIN TIME 14.6 SECONDS (12.5-14.5)
[2025-02-11 11:57] LABS: ALBUMIN 2.4 G/DL (3.2-5.2); ALKALINE PHOSPHATASE 69 U/L (35-104); ALT/SGPT 14 U/L (7.0-40); AST/SGOT 14 U/L (<34); BILIRUBIN,TOTAL 0.5 MG/DL (0.3-1.2); BLOOD UREA NITROGEN 14 MG/DL (9-23); CALCIUM LEVEL 8.1 MG/DL (8.3-10.6); CARBON DIOXIDE LEVEL 28 MMOL/L (20-31); CHLORIDE LEVEL 106 MMOL/L (98-107); CREATININE FOR GFR 0.57 MG/DL (0.55-1.30); GLOMERULAR FILTRATION RATE > 60.0 (>39); GLUCOSE, FASTING 106 MG/DL (74-106); POTASSIUM SERUM 3.5 MMOL/L (3.5-5.1); SODIUM LEVEL 142 MMOL/L (136-145); TOTAL PROTEIN 5.5 G/DL (5.7-8.2)
[2025-02-11] MEDS: ACETAMINOPHEN 325 MG TAB PO PRN (12:27)
[2025-02-11] MEDS ORDERED: VANCOMYCIN HCL 750 MG, VIAL MATE ADAPTER 1 EACH in NS 250 ML IV SCH (15:00)
[2025-02-11 17:00] VITALS: BP 147/74; TEMP 97.7; O2SAT 97
[2025-02-11] MEDS: PERCOCET 5MG/325MG TAB PO PRN (18:05)
[2025-02-11] MEDS: methylPREDNISolone 125MG 2ML VIAL IV ONE (19:56)
[2025-02-11] MEDS: CYCLOBENZAPRINE 10MG TABLET PO PRN (19:57)
[2025-02-11] MEDS: CHLORTHALIDONE 25 MG TAB PO SCH (19:58)
[2025-02-11 19:59] VITALS: BP 147/74; TEMP 98.6; O2SAT 98
[2025-02-12 04:26] VITALS: BP 138/78; TEMP 97.9; O2SAT 97
[2025-02-12 06:21] LABS: HEMATOCRIT 34.6 % (36.0-47.0); HEMOGLOBIN 11.1 g/dl (12.0-15.5); MEAN CORPUSCULAR HEMOGLOBIN 28.7 pg (27.0-33.0); MEAN CORPUSCULAR HGB CONC 32.1 g/dl (32.0-36.5); MEAN CORPUSCULAR VOLUME 89.4 fl (80.0-96.0); PLATELET COUNT, AUTOMATED 200 10^3/uL (150-450); RED BLOOD COUNT 3.87 10^6/uL (4.00-5.40); WHITE BLOOD COUNT 7.1 10^3/uL (4.0-10.0)
[2025-02-12 06:54] LABS: ALBUMIN 2.4 G/DL (3.2-5.2); ALKALINE PHOSPHATASE 68 U/L (35-104); ALT/SGPT 14 U/L (7.0-40); AST/SGOT 12 U/L (<34); BILIRUBIN,TOTAL 0.3 MG/DL (0.3-1.2); BLOOD UREA NITROGEN 18 MG/DL (9-23); CALCIUM LEVEL 8.3 MG/DL (8.3-10.6); CARBON DIOXIDE LEVEL 29 MMOL/L (20-31); CHLORIDE LEVEL 105 MMOL/L (98-107); CREATININE FOR GFR 0.54 MG/DL (0.55-1.30); GLOMERULAR FILTRATION RATE > 60.0 (>39); GLUCOSE, FASTING 139 MG/DL (74-106); MAGNESIUM LEVEL 1.5 MG/DL (1.8-2.4); POTASSIUM SERUM 3.8 MMOL/L (3.5-5.1); SODIUM LEVEL 141 MMOL/L (136-145); TOTAL PROTEIN 5.6 G/DL (5.7-8.2)
[2025-02-12] MEDS: MAG SULF 1GM/100ML (MAG RUN) 1 GM in IV 1 EA IV SCH (08:36)
[2025-02-12 11:51] VITALS: BP 134/63; TEMP 97.5; O2SAT 95
[2025-02-12] MEDS: predniSONE 10MG TAB PO ONE (18:40)
[2025-02-12 20:15] VITALS: BP 110/69; TEMP 97.3; O2SAT 95
[2025-02-13 03:21] VITALS: BP 113/67; TEMP 97.3; O2SAT 96
[2025-02-13] MEDS ORDERED: CEFD1CAP9 PO (08:32)
[2025-02-13] MEDS ORDERED: CYCL10TA20 PO (08:32)
[2025-02-13] MEDS ORDERED: ELIQ5TAB PO (08:32)
[2025-02-13] MEDS ORDERED: ACET32TAB PO (08:32)
[2025-02-13] MEDS ORDERED: MAGN400T2 PO (08:32)
[2025-02-13] MEDS ORDERED: MEDR4PAK PO (08:36)
[2025-02-13 12:00] VITALS: BP 145/69; TEMP 97.7; O2SAT 98
== END 2025-02-13 14:21 | disposition home or self-care (01) ==
LOC: M ED 18:11 → M ED INP 02-11 08:03 → M MSPAV 02-11 17:18
PROVIDERS: ADMIT Internal Medicine; ATTEND Internal Medicine
DX: A41.9 Sepsis, unspecified organism (principal); N39.0 Urinary tract infection, site not specified; B96.20 Unspecified Escherichia coli [E. coli] as the cause of diseases classified elsewhere; B97.29 Other coronavirus as the cause of diseases classified elsewhere; M54.2 Cervicalgia; M54.50 Low back pain, unspecified; I45.10 Unspecified right bundle-branch block; E83.42 Hypomagnesemia; E87.6 Hypokalemia; I10 Essential (primary) hypertension; K21.9 Gastro-esophageal reflux disease without esophagitis; E55.9 Vitamin D deficiency, unspecified; I48.91 Unspecified atrial fibrillation; Z79.01 Long term (current) use of anticoagulants; Z79.2 Long term (current) use of antibiotics; Z79.899 Other long term (current) drug therapy
CPT/HCPCS: 36415; 71045; 72125; 72128; 80048; 80053; 80076; 81001; 82150; 82803; 83605; 83735; 84145; 85025; 85027; 85610; 85652; 85730; 86140; 86850; 86900; 86901; 87040; 87088; 87186; 87486; 87581; 87633; 87798; 93005; 93041; 93306; 94760; 96361; 96365; 96366; 96367; 96372; 96375; 96376; 97161; 97530; 99285; J0696; J1650; J1885; J2543; J2919; J3371; J3475; J7512; Q9967

== ENCOUNTER → 2025-06-22 | Outpatient (CLI) | payer BC, MEDICARE ==
[~2025-06-22] MED LIST changes: +ACET32TAB PO; +CEFD1CAP9 PO; +CYCL10TA20 PO; +ELIQ5TAB PO; +EQ S0.65 NARES; +LIDO1ADH93 TD; -LIDO5DIS41 TD; +MEDR4PAK PO
== END ==
LOC: M PLARAD 11:00
PROVIDERS: ATTEND Neurological Surgery
DX: D33.3 Benign neoplasm of cranial nerves (principal)

== ENCOUNTER → 2025-11-01 | Outpatient (CLI) | payer BC | LOC: M SOG 07:37 | PROVIDERS: ATTEND Orthopaedic Surgery | DX: M17.12 Unilateral primary osteoarthritis, left knee (principal) ==